=== PATIENT | female | born 1975 | race Caucasian/White ===

== ENCOUNTER → 2019-05-07 11:00 | Outpatient (BNVA) | payer SELFPAY | PROVIDERS: PCP Registered Nurse; Visit Provider Registered Nurse | DX: E11.9 Type 2 diabetes mellitus without complications (principal) | CPT/HCPCS: 83036; 84146 ==

== ENCOUNTER → 2019-06-09 15:15 | Outpatient (BNVA) | payer BC, SELFPAY | PROVIDERS: PCP Registered Nurse; Visit Provider Nurse Practitioner Family | DX: R05 Cough (principal); J06.9 Acute upper respiratory infection, unspecified | CPT/HCPCS: 87804 ==

== ENCOUNTER → 2019-09-02 13:31 | Outpatient (BNVA) | payer BC, SELFPAY | PROVIDERS: PCP Registered Nurse; Visit Provider Registered Nurse | DX: E10.65 Type 1 diabetes mellitus with hyperglycemia (principal); Z12.31 Encounter for screening mammogram for malignant neoplasm of breast; F41.9 Anxiety disorder, unspecified; E22.1 Hyperprolactinemia; F33.0 Major depressive disorder, recurrent, mild | CPT/HCPCS: 80053; 83036; 84146; 85025 ==

== ENCOUNTER → 2019-12-07 10:16 | Outpatient (BNVA) | payer BC, SELFPAY | PROVIDERS: PCP Registered Nurse; Visit Provider Nurse Practitioner Family | DX: E10.65 Type 1 diabetes mellitus with hyperglycemia (principal); E22.1 Hyperprolactinemia; Z79.899 Other long term (current) drug therapy | CPT/HCPCS: 80053; 82043; 83036; 84146 ==

== ENCOUNTER → 2020-03-01 10:58 | Outpatient (BNVA) | payer BC, SELFPAY | PROVIDERS: PCP Registered Nurse; Visit Provider Registered Nurse | DX: E10.65 Type 1 diabetes mellitus with hyperglycemia (principal); F41.9 Anxiety disorder, unspecified | CPT/HCPCS: 83036 ==

== ENCOUNTER → 2020-06-14 08:38 | Outpatient (BNVA) | payer OTHER, SELFPAY | PROVIDERS: PCP Registered Nurse; Visit Provider Registered Nurse | DX: E10.65 Type 1 diabetes mellitus with hyperglycemia (principal); I10 Essential (primary) hypertension; F33.0 Major depressive disorder, recurrent, mild | CPT/HCPCS: 80053; 83036; 85025 ==

== ENCOUNTER → 2020-07-01 09:22 | Outpatient (BNVA) | payer OTHER, SELFPAY | PROVIDERS: PCP Registered Nurse; Referring Provider Registered Nurse; Visit Provider Internal Medicine | DX: D35.2 Benign neoplasm of pituitary gland (principal); E10.65 Type 1 diabetes mellitus with hyperglycemia; E16.0 Drug-induced hypoglycemia without coma; T38.3X5A Adverse effect of insulin and oral hypoglycemic [antidiabetic] drugs, initial encounter; E22.1 Hyperprolactinemia | CPT/HCPCS: 99204 ==

== ENCOUNTER → 2020-07-13 09:04 | Outpatient (BNVA) | payer OTHER, SELFPAY | PROVIDERS: PCP Registered Nurse; Visit Provider Internal Medicine | DX: D35.2 Benign neoplasm of pituitary gland (principal); E10.65 Type 1 diabetes mellitus with hyperglycemia | CPT/HCPCS: 84146 ==

== ENCOUNTER → 2020-07-15 10:54 | Outpatient (BNVA) | payer OTHER, SELFPAY | PROVIDERS: PCP Registered Nurse; Visit Provider Internal Medicine | DX: E10.65 Type 1 diabetes mellitus with hyperglycemia (principal); E16.0 Drug-induced hypoglycemia without coma; T38.3X5A Adverse effect of insulin and oral hypoglycemic [antidiabetic] drugs, initial encounter; E22.1 Hyperprolactinemia | CPT/HCPCS: 99214 ==

== ENCOUNTER 2020-07-31 22:18 | Emergency (ER) | payer OTHER, SELFPAY ==
[2020-07-31 22:42] VITALS: BP 145/93; PULSE 97; RESP 15; TEMP 36.6; O2SAT 98; BMI 27.4
--- NOTE | 2020-08-01 00:21 | CTR_ITS ---
PROCEDURE INFORMATION: Exam: CT Head Without Contrast Exam date and time: 08/01/2020 12:23 AM Age: 45 years old Clinical indication: Patient HX: C/O severe dizziness; Additional info: Dizzy TECHNIQUE: Imaging protocol: Computed tomography of the head without contrast. Radiation optimization: All CT scans at this facility use at least one of these dose optimization techniques: automated exposure control; mA and/or kV adjustment per patient size (includes targeted exams where dose is matched to clinical indication); or iterative reconstruction. ADDITIONAL STUDY INFORMATION: Total DLP (mGy-cm): 810.24 COMPARISON: No relevant prior studies available. FINDINGS: Small calcified extra-axial lesion projecting over upper-posterior aspect left frontal lobe is likely meningioma. Evaluation of the brain demonstrates no other areas of abnormal density. Size of ventricular system appears within normal limits for the patient's stated age. No depressed calvarial fracture is demonstrated. Visualized paranasal sinuses and mastoid air cells demonstrate no significant opacification. CT/CT head wo con* [id number] IMPRESSION: No acute intracranial process is demonstrated. Small calcified extra-axial lesion projecting over upper-posterior aspect left frontal lobe is likely meningioma. Continued follow-up imaging as clinically warranted. Radiation Dose CTDIVOL = (mGy): DLP = 810.24 (mGy-cm)
[2020-08-01] MEDS: sodium chloride 0.9% 1,000 ML 999 ML IV (00:50)
[2020-08-01] MEDS: LORazepam 2 mg/mL INJ 1 mL 1.5 MG IVP (00:54)
[2020-08-01] MEDS: ondansetron 2 mg/ML SDV 2 mL 4 MG IVP (00:54)
[2020-08-01 01:04] LABS: Basophils # 0.1 10^3/uL (0.0-0.1); Basophils % 1.5 %; Eosinophils # 0.5 10^3/uL (0.0-0.8); Eosinophils % 5.7 %; Hematocrit 43.6 % (37.0-47.0); Hemoglobin 14.4 g/dL (11.5-15.3); Lymphocytes # 3.4 10^3/uL (0.8-4.8); Lymphocytes % 39.7 %; Mean Corpuscular Hemoglobin 27.3 pg (28.0-34.0); Mean Corpuscular Volume 82.7 fL (81-99); Mean Platelet Volume 10.7 fL (7.4-10.4); Monocytes # 0.4 10^3/uL (0.2-0.9); Monocytes % 4.4 %; Neutrophils # 4.15 10^3/uL (1.8-7.7); Neutrophils % 48.4 %; Nucleated Red Blood Cells % 0 %; Platelet Count 366 10^3/cmm (130-400); Red Blood Count 5.27 10^6/uL (4.1-5.3); Red Cell Distribution Width 13.8 % (12.1-15.1); White Blood Count 8.6 10^3/uL (4.0-10.0)
--- NOTE | 2020-08-01 01:23 | W.ED.DIZZY ---
HPI - Dizziness General: Chief Complaint: Dizziness Stated Complaint: dizzy Time Seen by Provider: 08/01/20 00:09 History of Present Illness: HPI Narrative: 45-year-old female with a history of vertigo due to inner ear infections . She presents with dizziness. She woke up this morning dizzy, and has been dizzy throughout the day. She notes that her left arm feels a bit weird as well, and has most of the day. She is not weak. No language problems, no facial droop, no other symptoms. She explains a vertiginous type of dizziness. MD elicited complaint: dizziness and vertigo Pertinent past history: inner ear problems Onset (ago): hour(s) Timing: awoke with symptoms Severity: moderate Description: sense of movement and room spinning Context: change in body position History of similar symptoms: Yes Exacerbating factors: movement/ambulation Relieving factors: nothing Associated symptoms: Reports nausea; Denies chest pain, fevers/chills, headache(s), rash, tinnitus or vomiting Review of Systems ENMT: Denies: tinnitus Card: Denies: chest pain Resp: Denies: dyspnea or productive cough GI: Reports: nausea; Denies: vomiting Neuro: Denies: headache(s) PFSH ED PFSH: Medical History Depression Hyperprolactinemia Hypoglycemia due to insulin Uncontrolled type 1 diabetes mellitus with hyperglycemia Surgical History History of section Hx of tubal ligation Family History Father Cancer Mother Cancer Social History Smoking and tobacco status: current every day smoker Second hand smoke exposure: Yes Smoking risk assessment/counseling performed?: No Alcohol intake: never Desire information about alcohol rehabilitation?: No Counseling given: No Desire information about substance/drug rehabilitation?: No Counseling given: No Adopted: No Caregiver/support person: No Lives independently: Yes Household members: spouse Current gender identity: Female Female Reproductive History: Date of last menstrual period: 11/09/19 Para: 2 Spontaneous abortions: No Physical Exam Const: COMMON NORMALS: patient oriented x3 GENERAL APPEARANCE: well developed ORIENTATION/CONSCIOUSNESS: Yes oriented to person, Yes oriented to place and Yes oriented to time HENMT: COMMON NORMALS: normocephalic, external ears normal and Normal external nose present HEAD & SCALP: normocephalic FACE & SINUS: normal facial exam NOSE: Normal external nose present and No nasal discharge present EXTERNAL EAR: Yes external ears normal Eye: COMMON NORMALS: Equal, round and reactive pupils present, EOMs intact bilaterally and conjunctivae normal EYELID: eyelids normal CONJUNCTIVA: Yes conjunctivae normal PUPIL: Yes Equal, round and reactive pupils present Neck/C-Spine: GENERAL: No tracheal deviation Chest: COMMONS NORMALS: normal inspection of the chest CHEST: No tenderness Resp: COMMON NORMALS: clear to auscultation bilaterally EFFORT & INSPECTION: No tachypneic, No respiratory distress, No retractions, No uses accessory muscles and No tracheal deviation AUSCULTATION: clear to auscultation bilaterally, no rhonchi, no wheezes and lung sounds not diminished Cardio: COMMON NORMALS: regular rate and regular rhythm RATE: regular rate RHYTHM: regular rhythm HEART SOUNDS: no murmurs PERIPHERAL PULSES: radial pulses present GI: INSPECTION: No abdominal distension AUSCULTATION: No Hyperactive bowel sounds present and No Hypoactive bowel sounds present PALPATION: No Guarding due to palpation present (GI) and No Rigid due to palpation PERCUSSION: no dullness to percussion and no tympanic to percussion Neuro: COMMON NORMALS: patient oriented x3, CN's II-XII intact bilaterally, moves all extremities and no focal motor deficits SENSORIUM/ORIENTATION: Yes oriented to person, Yes oriented to place and Yes oriented to time COORDINATION/BALANCE: [id number] test normal and [id number]-[id number] test normal SPEECH: speech normal SENSORY EXAM: Yes extremities (sensation intact) MOTOR EXAM: Pronator motor function not present COORDINATION: [id number]-[id number] test normal and yvnm-py-hplc test normal Psych: COMMON NORMALS: mental status grossly normal Skin: COMMON NORMALS: no rashes or lesions noted GENERAL SKIN EXAM: no rashes or lesions noted Course Vital Signs: Vital signs: Vital Signs Temperature 97.9 F 07/31/20 22:42 Pulse Rate 81 08/01/20 02:16 Respiratory Rate 18 08/01/20 02:16 Blood Pressure 124/78 08/01/20 02:16 Pulse Oximetry 97 08/01/20 02:16 MDM - Dizziness MDM Narrative: Medical decision making narrative: CT is negative. Labs are benign. It appears patient has history of benign paroxysmal vertigo, and likely has had a exacerbation. She will be treated with benzodiazepines and meclizine. Close outpatient follow-up. Lab Data: Labs: Lab Results 08/01/20 08/01/20 Range/Units 00:50 00:50 WBC 8.6 (4.0-10.0) 10^3/ uL RBC 5.27 (4.1-5.3) 10^6/u L Hgb 14.4 (11.5-15.3) g/dL Hct 43.6 (37.0-47.0) % MCV 82.7 (81-99) fL MCH 27.3 L (28.0-34.0) pg MCHC 33.0 (30.0-36.0) g/dL RDW 13.8 (12.1-15.1) % Plt Count 366 (130-400) 10^3/c mm MPV 10.7 H (7.4-10.4) fL Neut % (Auto) 48.4 % Lymph % (Auto) 39.7 % Cannon % (Auto) 4.4 % Eos % (Auto) 5.7 % Baso % (Auto) 1.5 % Neut # (Auto) 4.15 (1.8-7.7) 10^3/u L Lymph # (Auto) 3.4 (0.8-4.8) 10^3/u L Cannon # (Auto) 0.4 (0.2-0.9) 10^3/u L Eos # (Auto) 0.5 (0.0-0.8) 10^3/u L Baso # (Auto) 0.1 (0.0-0.1) 10^3/u L Nucleated RBC % (a uto) 0 % Nucleated RBCs # 0.0 /100WBC Sodium 134 L (136-145) mmol/L Potassium 4.2 (3.5-5.1) mmol/L Chloride 98 (98-107) mmol/L Carbon Dioxide 26 (22-29) mmol/L Anion Gap 14.2 (5-19) BUN 9 (6-20) mg/dL Creatinine 0.5 (0.5-0.9) mg/dL GFR Calculation 134.7 H (90-130) mL/min Glucose 309 H (65-115) mg/dL Calculated Osmolal ity 288 (285-295) mOsm/k g Calcium 8.6 (8.5-10.5) mg/dL Magnesium 1.9 (1.7-2.3) mg/dL Total Bilirubin 0.2 (0.15-1.2) mg/dL AST 11 (0-32) U/L ALT 11 (0-33) U/L Alkaline Phosphata se 87 (35-105) IU/L Total Protein 6.7 (6.6-8.7) g/dL Albumin 4.1 (3.5-5.2) g/dL Globulin 2.6 (1.3-4.6) g/dL Discharge Plan Discharge Patient Disposition: Home Clinical Impression: Benign paroxysmal positional vertigo Qualifiers: Laterality: right Qualified Code(s): H81.11 - Benign paroxysmal vertigo, right ear Condition: Stable Prescriptions: New meclizine 25 mg tablet 25 mg PO TID PRN (Reason: dizziness) Qty: 30 RF: 0 lorazepam 1 mg tablet 1 mg PO TID PRN (Reason: dizziness or vertigo) Qty: 7 RF: 0 No Action venlafaxine 75 mg capsule,extended release 24hr See Rx Instructions .ROUTE .COMPLEX Qty: 90 RF: 1 Apidra SoloStar U-100 Insulin 100 unit/mL insulin pen See Rx Instructions .ROUTE .COMPLEX Qty: 27 RF: 2 Lantus Solostar U-100 Insulin 100 unit/mL (3 mL) insulin pen See Rx Instructions .ROUTE .COMPLEX Qty: 15 RF: 2 cabergoline 0.5 mg tablet 0.25 mg PO .COMPLEX RF: 0 valacyclovir [Valtrex] 1 gram tablet 1,000 mg PO BID 7 Days Qty: 14 RF: 0 alprazolam 0.5 mg tablet 0.5 mg PO QDAY PRN (Reason: anxiety) Qty: 30 RF: 3 Discharge Orders: Discharge ED (Routine); Ordered 08/01/20 Ordered By: Zeus Estrada Referrals: Lorrie Ramirez, EXPLOSIVE [employer]DNANCE DISPOSAL SPECIALIST [Primary Care Provider] - 4-7 days Patient Instructions: Benign Paroxysmal Positional Vertigo (ED) Activity Restrictions/Additional Instructions: Return for mental status changes, episodes of syncope or passing out, worsening dizziness despite treatment, trouble with language, weakness, other concerning symptoms. Coding Level of Care Code ED Farm[employer] for Alessandra Fwd Exam Comprehensive
[2020-08-01 01:24] LABS: Alanine Aminotransferase 11 U/L (0-33); Albumin Level 4.1 g/dL (3.5-5.2); Alkaline Phosphatase 87 IU/L (35-105); Anion Gap 14.2 (5-19); Aspartate Amino Transferase 11 U/L (0-32); Blood Urea Nitrogen 9 mg/dL (6-20); Calcium 8.6 mg/dL (8.5-10.5); Carbon Dioxide 26 mmol/L (22-29); Chloride 98 mmol/L (98-107); Globulin 2.6 g/dL (1.3-4.6); Glomerular Filtration Rate 134.7 mL/min (90-130); Glucose 309 mg/dL (65-115); Magnesium 1.9 mg/dL (1.7-2.3); Osmolality Calculated 288 mOsm/kg (285-295); Potassium 4.2 mmol/L (3.5-5.1); Sodium 134 mmol/L (136-145); Total Bilirubin 0.2 mg/dL (0.15-1.2); Total Protein 6.7 g/dL (6.6-8.7)
[2020-08-01 02:16] VITALS: BP 124/78; PULSE 81; RESP 18; O2SAT 97
== END 2020-08-01 02:15 | disposition home or self-care (01) ==
PROVIDERS: Emergency Provider Emergency Medicine; PCP Registered Nurse
DX: H81.11 Benign paroxysmal vertigo, right ear (principal); Z79.4 Long term (current) use of insulin; E10.9 Type 1 diabetes mellitus without complications; F17.210 Nicotine dependence, cigarettes, uncomplicated
CPT/HCPCS: 70450; 80053; 83735; 85025; 96361; 96374; 96375; 99283; J2060; J2405; J7030

== ENCOUNTER 2020-10-09 12:00 | Emergency (ER) | payer OTHER, SELFPAY ==
[2020-10-09 12:14] VITALS: BP 125/84; PULSE 80; RESP 18; TEMP 36.7; O2SAT 97; BMI 24.0
--- NOTE | 2020-10-09 12:22 | W.ED.MEDCLER ---
HPI - Medical Clearance General Chief complaint: Medical Clearance Stated complaint: Needs insulin refilled Time Seen by Provider: 10/09/20 12:21 History of Present Illness HPI Narrative: Patient is a 45-year-old female comes to the ED wanting to get insulin med refilled. Patient has no other complaints or symptoms. Related Information Home Medications Medication Instructions Recorded Confirmed cabergoline 0.5 mg tablet 0.25 mg PO .COMPLEX tab 07/01/20 08/16/20 aspirin 81 mg tablet,delayed 81 mg PO DAILY 08/11/20 08/16/20 release atorvastatin 40 mg tablet 40 mg PO DAILY 08/11/20 08/16/20 Previous Rx's Medication Instructions Recorded valacyclovir 1 gram tablet 1,000 mg PO BID 7 Days #14 tab 09/10/19 insulin glulisine U-100 100 See Rx Instructions .ROUTE 06/14/20 unit/mL subcutaneous pen .COMPLEX #27 ml venlafaxine 75 mg capsule,extended See Rx Instructions .ROUTE 06/14/20 release 24 hr .COMPLEX #90 capsule meclizine 25 mg PO TID PRN #30 tab 08/01/20 clonazepam 0.5 mg disintegrating 0.25 - 0.5 mg PO BID PRN #30 tab 08/26/20 tablet insulin glargine 100 unit/mL (3 See Rx Instructions .ROUTE 08/26/20 mL) subcutaneous pen .COMPLEX #15 ml insulin glulisine U-100 [Apidra 10 unit SUBCUT TID #3 ml 10/09/20 SoloStar U-100 Insulin] Allergies Allergy/AdvReac Type Severity Reaction Status Date / Time latex Allergy Unknown Verified 10/09/20 12:14 moxifloxacin [From Avelox] Allergy Unknown Verified 10/09/20 12:14 Penicillins Allergy Unknown Verified 10/09/20 12:14 Course Vital Signs Temperature 98.0 F 10/09/20 12:27 Pulse Rate 80 10/09/20 12:27 Respiratory Rate 18 10/09/20 12:27 Blood Pressure 125/84 10/09/20 12:27 Pulse Oximetry 97 10/09/20 12:27 MDM - Medical Clearance MDM Narrative Medical decision making narrative: Patient is a 45-year-old female comes to the ED to get medication refilled. Patient says she ran out of her insulin and needs to get that med refilled. Patient was out of her Apidra SoloStar insulin. Patient was in no acute distress or pain and had no other complaints. Patient was discharged home with a new prescription for her Apidra SoloStar insulin. Follow-up with PCP in 7 to 10 days reevaluation. Return ED precautions given. Patient understood agree with plan. Discharge Plan Discharge Patient Disposition: Home Clinical Impression: Encounter for medication refill Condition: Stable Prescriptions: New Apidra SoloStar U-100 Insulin 100 unit/mL insulin pen 10 unit SUBCUT TID Qty: 3 RF: 0 No Action venlafaxine 75 mg capsule,extended release 24hr See Rx Instructions .ROUTE .COMPLEX Qty: 90 RF: 1 Apidra SoloStar U-100 Insulin 100 unit/mL insulin pen See Rx Instructions .ROUTE .COMPLEX Qty: 27 RF: 2 cabergoline 0.5 mg tablet 0.25 mg PO .COMPLEX RF: 0 aspirin [Adult Low Dose Aspirin] 81 mg tablet,delayed release (DR/EC) 81 mg PO DAILY RF: 0 atorvastatin 40 mg tablet 40 mg PO DAILY RF: 0 valacyclovir [Valtrex] 1 gram tablet 1,000 mg PO BID 7 Days Qty: 14 RF: 0 Lantus Solostar U-100 Insulin 100 unit/mL (3 mL) insulin pen See Rx Instructions .ROUTE .COMPLEX Qty: 15 RF: 2 clonazepam 0.5 mg tablet,disintegrating 0.25 - 0.5 mg PO BID PRN (Reason: anxiety) Qty: 30 RF: 1 meclizine 25 mg tablet 25 mg PO TID PRN (Reason: dizziness) Qty: 30 RF: 0 Discharge Orders: Discharge ED (Routine); Ordered 10/09/20 Ordered By: Alvaro Cameron Referrals: Lorrie Ramirez FNP [Primary Care Provider] - Discharge Diet: Regular Discharge Activity: Resume usual activity Patient Instructions: Diabetes and Diet, Diabetes Mellitus Type 1 in Adults (ED) Activity Restrictions/Additional Instructions: Follow-up with medical provider as directed and 7 to 10 days for reevaluation. Take medications as prescribed. Return to the ER or your medical provider if condition worsens. Please read and understand discharge instructions. Thank you for choosing [facility] for your healthcare needs today. Please realize this is an emergency room and that we are providing you with a medical screening exam and this may not be complete and all inclusive of all the testing and or work up that you may need to determine your ailment or severity of your illness. It is very important that you follow up as instructed or that you return to the Emergency Department should you have concerns or if your condition changes or worsens in any way.
[2020-10-09 12:27] VITALS: BP 125/84; PULSE 80; RESP 18; TEMP 36.7; O2SAT 97
== END 2020-10-09 12:44 | disposition home or self-care (01) ==
PROVIDERS: Emergency Provider Physician Assistant; PCP Registered Nurse
DX: Z76.0 Encounter for issue of repeat prescription (principal); Z79.82 Long term (current) use of aspirin; Z79.4 Long term (current) use of insulin
CPT/HCPCS: 99281

== ENCOUNTER 2020-10-16 12:07 | Emergency (ER) | payer OTHER, SELFPAY ==
[2020-10-16 12:30] VITALS: BP 131/82; PULSE 79; RESP 18; TEMP 36.6; O2SAT 96; BMI 27.4
--- NOTE | 2020-10-16 15:35 | PC.NURSE ---
Visual eye acuity test of 20/70 in each eye.
[2020-10-16] MEDS: eye irrigation 30 mL Btl EYE-LEFT (15:49)
[2020-10-16] MEDS: tetracaine 0.5% Op Soln 4 mL Btl 1 DROP EYE-LEFT (15:49)
[2020-10-16] MEDS: fluorescein 1 mg Strip EYE-LEFT (15:50)
--- NOTE | 2020-10-16 16:52 | ED_ITS ---
HPI - Eye Problem General: Chief complaint: Eye Problems Stated complaint: L EYE INJURY Time Seen by Provider: 10/16/20 13:45 Source: patient Mode of arrival: ambulatory Limitations: no limitations History of Present Illness: HPI Narrative: 45-year-old female patient presents to the emergency department complaining of left eye pain. Patient states she was gardening in public she got something in her eye. Patient states she started rubbing her eye and ever since then has had eye pain. Patient states she has visual disturbances in that eye which is normal for her due to an old stroke. Associated symptoms: Denies fever(s), headache(s), nausea, neck pain or vomiting Review of Systems Const: Denies: fever(s), chills, body aches, change in appetite, change in weight, fatigue, malaise or diaphoresis Eyes: Reports: change in vision (This is not new as patient has old stroke with deficits) and eye discomfort; Denies: blurry vision, blind spots, photophobia, eye discharge, eye redness, floaters or seeing flashes ENMT: Denies: throat pain, uvular edema, enlarged tonsils, odynophagia, hoarseness, mouth pain, swelling of lips/tongue, oral sores, bleeding gums, dental pain, dry mouth, ear or mastoid pain, ear discharge, change in hearing, tinnitus, disequilibrium, nasal discharge, nasal congestion, post nasal drip or sinus pain Card: Denies: chest pain, palpitations, irregular heart rhythm, edema, swelling of feet/ankles, lightheadedness, syncope, pre-syncope, dyspnea on exertion, orthopnea, leg pain with exertion or acrocyanosis Resp: Denies: dyspnea, productive cough, non-productive cough, wheezing, stridor, pain on inspiration, change in phlegm color, hemoptysis or chest congestion GI: Denies: abdominal pain, nausea, vomiting, hematemesis, dysphagia, diarrhea, constipation, GI cramping, change in bowel habits or rectal pain : Denies: flank pain, difficulty voiding, dysuria, urinary frequency, urinary urgency, urinary hesitancy or hematuria Musc: Denies: neck pain, back pain, extremity pain, extremity swelling, joint pain, joint swelling, joint redness, joint warmth or deformity Skin/Breast: Denies: rash, pruritus, erythema, sores, new lesions, changes in skin color or dry skin Neuro: Denies: headache(s), numbness in extremities, weakness in extremities, sensory changes, lack of coordination, difficulty walking, frequent falls, dizziness, vertigo, confusion, behavioral changes, Slurred speech present, difficulty communicating thoughts or seizure-like activity Psych: Denies: anxiety, depression, suicidal ideation or homicidal ideation Endo: Denies: polyuria, polydipsia, tired all the time, cold intolerance, excessive sweating, flushing, hot flashes or heat intolerance Kennedy/Lymph: Denies: easy bruising, easy bleeding, petechiae, purpura, enlarged lymph nodes or tender lymph nodes All/Imm: Denies: urticaria, throat swelling, tongue swelling, facial swelling, acute wheezing or itchy eyes PFSH ED PFSH: Medical History Depression Hyperprolactinemia Hypoglycemia due to insulin Ischemic stroke without residual deficits Dx 08/05/2020 @ [facility] Uncontrolled type 1 diabetes mellitus with hyperglycemia Surgical History History of section Hx of tubal ligation Family History Father Cancer Mother Cancer, Onset Age: 65 brain cancer at age 65 Social History Smoking and tobacco status: current every day smoker Second hand smoke exposure: Yes Smoking risk assessment/counseling performed?: No Alcohol intake: never Desire information about alcohol rehabilitation?: No Counseling given: No Desire information about substance/drug rehabilitation?: No Counseling given: No Adopted: No Caregiver/support person: No Lives independently: Yes Household members: spouse Current gender identity: Female Female Reproductive History: Date of last menstrual period: 11/09/19 Para: 2 Spontaneous abortions: No Physical Exam Const: COMMON NORMALS: no acute distress, average body habitus, patient oriented x3, no limitations, healthy appearing, alert and well nourished HENMT: COMMON NORMALS: normocephalic, atraumatic, hearing grossly normal bilaterally, external ears normal, EAC's normal, TM's normal bilaterally, Normal external nose present, Normal nasal mucous membranes and turbinates present, moist oral mucous membranes, oropharynx normal, dentition normal and gingiva normal HEAD & SCALP: normocephalic and atraumatic NOSE: Normal external nose present and Normal nasal mucous membranes and turbinates present EXTERNAL EAR: Yes external ears normal EXTERNAL AUDITORY CANAL: EAC's normal TYMPANIC MEMBRANE: TM's normal bilaterally THROAT: no uvular edema Eye: COMMON NORMALS: Equal, round and reactive pupils present, EOMs intact bilaterally, conjunctivae normal, no scleral icterus, no papilledema, normal visual hopkins by confrontation and fundi normal bilaterally GENERAL EYE: appearance normal, both eyes and all related structures and normal light reflex VISUAL ACUITY: Yes visual acuity left eye (This is a normal finding for patient secondary to remote stroke) ALIGNMENT: Yes alignment normal EYELID: eyelids normal CONJUNCTIVA: Yes conjunctivae normal SCLERA: sclerae normal CORNEA: Yes fluorescein used (Patient has corneal abrasion at 6:00) PUPIL: Yes Equal, round and reactive pupils present DIRECT OPHTHALMOSCOPY: Yes normal light reflex, Yes no papilledema and Yes fundi normal bilaterally Neuro: COMMON NORMALS: patient oriented x3 SENSORIUM/ORIENTATION: Yes alert Course Vital Signs: Vital signs: Vital Signs Temperature 97.9 F 10/16/20 12:30 Pulse Rate 79 10/16/20 12:30 Respiratory Rate 18 10/16/20 12:30 Blood Pressure 131/82 10/16/20 12:30 Pulse Oximetry 96 10/16/20 12:30 MDM - Eye Problem MDM Narrative: Medical decision making narrative: Patient is well-appearing nontoxic and in no acute distress. 45-year-old female patient presents to the emergency department complaining of left eye pain. Patient states she was gardening in public she got something in her eye. Patient states she started rubbing her eye and ever since then has had eye pain. Patient states she has visual disturbances in that eye which is normal for her due to an old stroke. I did examine patient's eye after applying tetracaine and fluorescein under a Carter lamp patient does have a corneal abrasion noted at 6:00. I will send patient home with erythromycin eye ointment and have her follow-up with Dr. Wright ophthalmology Saturday a.m. Discharge Plan Discharge Patient Disposition: Home Clinical Impression: Abrasion, corneal Qualifiers: Encounter type: initial encounter Laterality: left Qualified Code(s): S05.02XA - Injury of conjunctiva and corneal abrasion without foreign body, left eye, initial encounter Condition: Stable Prescriptions: New erythromycin 5 mg/gram (0.5 %) ointment 1 applic ophthalmic (eye) Q8H 7 Days Qty: 1 RF: 0 No Action venlafaxine 75 mg capsule,extended release 24hr See Rx Instructions .ROUTE .COMPLEX Qty: 90 RF: 1 Apidra SoloStar U-100 Insulin 100 unit/mL insulin pen See Rx Instructions .ROUTE .COMPLEX Qty: 27 RF: 2 cabergoline 0.5 mg tablet 0.25 mg PO .COMPLEX RF: 0 aspirin [Adult Low Dose Aspirin] 81 mg tablet,delayed release (DR/EC) 81 mg PO DAILY RF: 0 atorvastatin 40 mg tablet 40 mg PO DAILY RF: 0 valacyclovir [Valtrex] 1 gram tablet 1,000 mg PO BID 7 Days Qty: 14 RF: 0 Lantus Solostar U-100 Insulin 100 unit/mL (3 mL) insulin pen See Rx Instructions .ROUTE .COMPLEX Qty: 15 RF: 2 clonazepam 0.5 mg tablet,disintegrating 0.25 - 0.5 mg PO BID PRN (Reason: anxiety) Qty: 30 RF: 1 Apidra SoloStar U-100 Insulin 100 unit/mL insulin pen 10 unit SUBCUT TID Qty: 3 RF: 0 meclizine 25 mg tablet 25 mg PO TID PRN (Reason: dizziness) Qty: 30 RF: 0 Discharge Orders: Discharge ED (Routine); Ordered 10/16/20 Ordered By: Suzie Crouch Referrals: Dontrell Wright MD [Physician] - (Please see Dr. Wright tomorrow for recheck) Lorrie Ramirez FNP [Primary Care Provider] - Discharge Diet: Advance as tolerated Discharge Activity: Increase activity as tolerated Patient Instructions: Corneal Abrasion (ED), Opioid Safety Activity Restrictions/Additional Instructions: Please use medication as directed Please return to ER if Your eye pain or vision gets worse. You have yellow or green drainage from your eye. You have questions about your condition or care Coding Level of Care Code ED Aging Room Hand for Alessandra Luque
== END 2020-10-16 15:51 | disposition home or self-care (01) ==
PROVIDERS: Emergency Provider Registered Nurse; PCP Registered Nurse
DX: S05.02XA Injury of conjunctiva and corneal abrasion without foreign body, left eye, initial encounter (principal); Z79.82 Long term (current) use of aspirin; Z79.4 Long term (current) use of insulin; E10.9 Type 1 diabetes mellitus without complications; Z86.73 Personal history of transient ischemic attack (TIA), and cerebral infarction without residual deficits; F17.210 Nicotine dependence, cigarettes, uncomplicated; X58.XXXA Exposure to other specified factors, initial encounter
CPT/HCPCS: 99283

== ENCOUNTER → 2020-11-24 09:40 | Outpatient (BNVA) | payer OTHER, SELFPAY | PROVIDERS: PCP Registered Nurse; Visit Provider Internal Medicine | DX: E22.1 Hyperprolactinemia (principal); E16.0 Drug-induced hypoglycemia without coma; T38.3X5A Adverse effect of insulin and oral hypoglycemic [antidiabetic] drugs, initial encounter; E10.65 Type 1 diabetes mellitus with hyperglycemia | CPT/HCPCS: 84146 ==

== ENCOUNTER → 2020-11-29 14:55 | Outpatient (BNVA) | payer OTHER, SELFPAY | PROVIDERS: PCP Registered Nurse; Visit Provider Nurse Practitioner Family | DX: Z20.822 Contact with and (suspected) exposure to COVID-19 (principal); R05 Cough | CPT/HCPCS: 87635 ==

== ENCOUNTER 2020-12-16 09:31 | Observation (INO) | payer OTHER, SELFPAY ==
[2020-12-16 09:48] VITALS: BP 118/79; PULSE 84; RESP 15; TEMP 36.7; O2SAT 96; BMI 25.7
--- NOTE | 2020-12-16 12:51 | ECG_ITS ---
[facility] Test Date: 2020-12-16 Pat Name: Nava Carlson Department: Room: [facility] Gender: Female Rig Manager: : 1975 Requested By: Lakhsmi Almaraz Order Number: [id number] Cheikh MD: Kun Knight M.D. Measurements Intervals [place] Rate: 70 P: 50 VT: 166 QRS: 82 QRSD: 90 T: 68 QT: 406 QTc: 439 Interpretive Statements SINUS RHYTHM No previous ECG available for comparison Electronically Signed On 12-16-2020 20:33:07 CDT by Kun Knight M.D. [id number]
--- NOTE | 2020-12-16 12:51 | CT_ITS ---
WS: [id number] CT HEAD TECHNIQUE: Noncontrast CT of the head obtained from the skullbase to the vertex. CLINICAL INFORMATION: TIA? COMPARISON: August 01, 2020 DLP: 774.[address] scans at [facility] use at least one of these dose optimization techniques: automated e xposure control; mA and/or kV adjustment per patient size (includes targeted exams where dose is matc hed to clinical indication); or iterative reconstruction. FINDINGS: No evidence of intracranial hemorrhage or mass effect. Ventricular system and basal cisterns are avitia nt. No extra-axial fluid collections. No evidence of mass or mass effect. Normal goode-white different iation. Small calcified left frontal parietal meningioma unchanged measuring 7 mm. Paranasal sinuses and mastoid air cells are well aerated. .Normal visualized soft tissues. CT/CT head wo con* [id number] IMPRESSION: 1. No evidence of intracranial hemorrhage or mass effect. 2. Normal goode-white differentiation. 3. Small calcified left frontal parietal meningioma unchanged measuring 7 mm. 4. No acute intracranial findings.
--- NOTE | 2020-12-16 13:00 | ED_ITS ---
HPI - General Adult General: Chief complaint: ER Hold Stated complaint: NUMBNESS IN LEFT HAND Time Seen by Provider: 12/16/20 12:34 History of Present Illness: HPI narrative: CC: Transient L arm heaviness HPI: [45]yo patient w/ hx of prior CVA in 07/2020, HTN, DM, structural cardiac abnoramltiy BIBA for sudden 3 hrs of L arm paralysis and heaviness which started yesterday at 8pm and improved after a few hours. Patient denies any paralysis or sensory changes. Denies any chest pain, SOB, palpitations, /GI complaints. Patient is not on any anticoagulation. Onset: 1 day ago Duration: last 3 hrs Location: home Severity: moderate/severe Review of Systems Narrative: Constitutional: No fever, no chills. HEENT: No vision changes CV: No chest pain, no palpitations PULM: No cough, no dyspnea. GI: No abdominal pain, no N/V/D. : No dysuria MSKEL: No edema SKIN: No new rashes, no lesions. NEURO: +Transient L arm weakness HEME: No visible bruises PSYCH: Normal mood PFSH ED PFSH: Medical History (Updated 12/18/20 @ 00:01 by ) Anxiety Anxiety Depression Hyperprolactinemia Hypoglycemia due to insulin Ischemic stroke without residual deficits Dx 08/05/2020 @ [facility] Meningioma PFO with atrial septal aneurysm Prolactinoma Quit smoking quit 08/2020 Uncontrolled type 1 diabetes mellitus with hyperglycemia Surgical History History of section Hx of tubal ligation Family History Father Cancer Mother Cancer, Onset Age: 65 brain cancer at age 65 Social History Smoking and tobacco status: former smoker Second hand smoke exposure: Yes Smoking risk assessment/counseling performed?: No Alcohol intake: never Desire information about alcohol rehabilitation?: No Counseling given: No Desire information about substance/drug rehabilitation?: No Counseling given: No Adopted: No Caregiver/support person: No Lives independently: Yes Household members: spouse Current gender identity: Female Female Reproductive History: Date of last menstrual period: 11/09/19 Para: 2 Spontaneous abortions: No Physical Exam Narrative: EXAM NARRATIVE: Head: Atraumatic Eyes: PERRL, conjunctiva without injection ENT: Mucous membrane moist NECK: Supple without lymphadenopathy LUNGS: CTA CV: RRR ABDOMEN: Soft, nontender EXTREMITY: Normal ROM SKIN: No rash or erythema NEURO: NIHSS: 1. Level of Consciousness A) LOC Responsiveness 0 B) LOC Questions 0 C) LOC Commands 0 2. Horizontal Eye Movement 0 3. Visual field test 0 4. Facial Palsy 0 5. Motor Arm 0 6. Motor Leg 0 7. Limb Ataxia 0 9. Language 0 10. Speech 0 11. Extinction and Inattention 0 PSYCH: Normal mood and affect. Course Vital Signs: Vital signs: Vital Signs Temperature 98.3 F 12/17/20 13:19 Pulse Rate 126 H 12/17/20 13:19 Respiratory Rate 20 H 12/17/20 13:19 Blood Pressure 184/95 12/17/20 13:19 Pulse Oximetry 99 12/17/20 13:19 MDM - General Adult MDM Narrative: Medical decision making narrative: [45]yo patien BIBA for 3 hrs of transient L arm weakness, currently symptom free. Presentation concerning for possible TIA. Given History and Exam I have lower suspicion for infectious etiology, neurologic changes secondary to toxicologic ingestion, seizure, complex migraine. NIHSS score of 0. PMH risk factors: DM, HTN, CVA NIH Stroke Score:0 Case was discussed with Dr. Hale from [facility] with recommendaion for admission for TIA workup Patient will be admitted for a TIA workup. Disposition: Admission Lab Data: Labs: Lab Results 12/16/20 Range/Units 13:22 POC Glucose 299 H (70-110) mg/dL Imaging Data^: Other Imaging: Radiologist's impression: [address] [id number] Scan ReportSigned Patient: Maria Teresa Carlson #: [id number]: [id number]#:[id number]/Sex: 45 / FADM Date: 12/16/20Loc: ERRoom/Bed:Attending Dr: Ordering Provider/Ordering MD: Lakshmi Almaraz MD Date of Service: 12/16/20 Procedure(s): CT head wo con* [id number] Accession Number(s): [id number] Report Number: [id number] WS: [id number] CT HEAD TECHNIQUE: Noncontrast CT of the head obtained from the skullbase to the vertex. CLINICAL INFORMATION: TIA? COMPARISON: August 01, 2020 DLP: 774.[address] scans at [facility] use at least one of these dose optimization techniques: automated exposure control; mA and/or kV adjustment per patient size (includes targeted exams where dose is matched to clinical indication); or iterative reconstruction. FINDINGS: No evidence of intracranial hemorrhage or mass effect. Ventricular system and basal cisterns are patent. No extra-axial fluid collections. No evidence of mass or mass effect. Normal goode-white differentiation. Small calcified left frontal parietal meningioma unchanged measuring 7 mm. Paranasal sinuses and mastoid air cells are well aerated. .Normal visualized soft tissues. CT/CT head wo con* [id number] IMPRESSION: 1. No evidence of intracranial hemorrhage or mass effect. 2. Normal goode-white differentiation. 3. Small calcified left frontal parietal meningioma unchanged measuring 7 mm. 4. No acute intracranial findings. Dictated By:Gabo Wesley MDSigned By:Gabo Wesley MDSigned Date/Time:12/16/20 1334DD/ 1310 Discharge Plan Discharge Patient Disposition: Admitted As Inpatient Admit Provider: Bryant Killian Clinical Impression: Transient ischemic attack Condition: Stable Discharge Diet: Cardiac Discharge Activity: Resume usual activity Coding Level of Care Code ED Copier Repair Technician for Alessandra Luque
--- NOTE | 2020-12-16 13:25 | MR_ITS ---
WS: [id number] MRA HEAD TECHNIQUE: Axial 3-D TOF images obtained with axial images and axial, sagittal, and coronal 2-D refor matted images. CLINICAL INFORMATION: possible stroke COMPARISON: CT December 16, 2020 FINDINGS: Disorder vertebral arteries are patent. Basilar artery is patent. Patent right posterior communicatin g artery. Normal vascularity to the MERCHANDISE PLANNING MANAGER territories bilaterally. Both ICAs are patent at the skull base. Normal vascularity to the MADELINE and MCA territories bilaterally . Normal variant hypoplastic right A1 segment. No evidence of high-grade proximal stenosis or aneurys m. MR/MR angio head wo con [id number] IMPRESSION: Normal intracranial MRA. No evidence of flow-limiting stenosis.
--- NOTE | 2020-12-16 13:25 | MR_ITS ---
WS: [id number] MRI HEAD WITHOUT CONTRAST TECHNIQUE: Sagittal T1, T2 axial, T2 axial FLAIR, axial and coronal T1 images, axial susceptibility w eighted imaging, axial diffusion weighted images, and coronal T2 images were obtained. CLINICAL INFORMATION: evaluate for tia COMPARISON: None. FINDINGS: No evidence of restricted diffusion to suggest acute ischemia. Ventricular system and basal cisterns are patent. Calcified extra-axial lesion overlying the left parietal lobe compatible with small menin gioma also seen on the recent CT. This measures approximately 11 x 7 mm. No underlying parenchymal ed shaniqua or significant mass effect. Normal posterior fossa. Normal vascular flow voids at the skull base. No extra-axial fluid collection s. No evidence of mass or mass effect. Paranasal sinuses and mastoid air cells are well aerated. Rete ntion cyst right maxillary sinus. Normal optic chiasm and pituitary infundibulum. Temporal lobes and hippocampal formations are normal in appearance. Cavernous sinuses and Meckel's cave are normal in ap pearance. No hemosiderin on susceptibly weighted images. MR/MR head wo con* [id number] IMPRESSION: 1. No evidence of restricted diffusion to suggest acute ischemia. 2. Minimal small vessel changes. Mild parenchymal volume loss. 3. Calcified extra-axial lesion overlying the left parietal lobe consistent wi th small meningioma. No underlying edema or significant mass effect. 4. No hemosiderin on susceptibly weighted images.
--- NOTE | 2020-12-16 13:26 | PC.NURSE ---
pt accucheck done.
--- NOTE | 2020-12-16 13:49 | PC.PHAR ---
PT STATES SHE TAKES CARE OF HER OWN MEDICATIONS-PTS STATES SHE ONLY TAKES THE MEDICATIONS ENTERED
[2020-12-16 13:59] LABS: Basophils # 0.1 10^3/uL (0.0-0.1); Basophils % 1.4 %; Eosinophils # 0.3 10^3/uL (0.0-0.8); Eosinophils % 4.5 %; Hematocrit 38.6 % (37.0-47.0); Hemoglobin 12.1 g/dL (11.5-15.3); Lymphocytes # 2.4 10^3/uL (0.8-4.8); Lymphocytes % 35.8 %; Mean Corpuscular HGB Conc 31.3 g/dL (30.0-36.0); Mean Corpuscular Hemoglobin 26.8 pg (28.0-34.0); Mean Corpuscular Volume 85.4 fl (81-99); Mean Platelet Volume 10.7 fL (7.4-10.4); Monocytes # 0.3 10^3/uL (0.2-0.9); Monocytes % 3.9 %; Neutrophils # 3.59 10^3/uL (1.8-7.7); Neutrophils % 54.1 %; Nucleated Red Blood Cells % 0 %; Platelet Count 404 10^3/cmm (130-400); Red Blood Count 4.52 10^6/uL (4.1-5.3); Red Cell Distribution Width 13.2 % (12.1-15.1); White Blood Count 6.6 10^3/uL (4.0-10.0)
[2020-12-16 14:00] VITALS: BP 153/58; PULSE 78; RESP 19; O2SAT 98
[2020-12-16 14:10] LABS: Anion Gap 14.2 (5-19); Blood Urea Nitrogen 10 mg/dL (6-20); Calcium 8.6 mg/dL (8.5-10.5); Carbon Dioxide 26 mmol/L (22-29); Chloride 99 mmol/L (98-107); Glomerular Filtration Rate 134.7 mL/min (90-130); Glucose 293 mg/dL (65-115); Osmolality Calculated 290 mOsm/kg (285-295); Potassium 4.2 mmol/L (3.5-5.1); Sodium 135 mmol/L (136-145)
[2020-12-16 14:11] LABS: Troponin(5th) Baseline 6 ng/L (0-10)
--- NOTE | 2020-12-16 14:44 | MR_ITS ---
WS: [id number] MRA CAROTID WITHOUT AND WITH GADOLINIUM ENHANCEMENT TECHNIQUE: Axial 2-D TOF and gadolinium bolus images obtained with axial images and axial, sagittal, and coronal 2-D reformatted images. CLINICAL INFORMATION: recurrent stroke COMPARISON: None. FINDINGS: Codominant and patent vertebral arteries bilaterally. Proximal basilar artery is patent. RIGHT: Right common carotid artery is patent. No significant right ICA stenosis. ICA is patent to the skull base. LEFT: Left common carotid artery is patent. No significant left ICA stenosis. Left ICA is patent to t he skull base. Normal branching aortic arch anatomy. MR/MR angio neck w con* [id number] IMPRESSION: 1. Codominant and patent vertebral arteries bilaterally. Proximal basilar dawood ry is patent. 2. No significant ICA stenosis bilaterally. Both ICAs are patent to the skull base. 3. Normal branching aortic arch anatomy.
--- NOTE | 2020-12-16 14:51 | ECG_ITS ---
[facility] Test Date: 2020-12-16 Pat Name: Nava Carlson Department: Room: 252 Gender: Female State Appellate Clerk: : 1975 Requested By: Lakshmi Almaraz Order Number: [id number] Cheikh MD: Kun Knight M.D. Measurements Intervals Hood Rate: 70 P: 50 VA: 166 QRS: 82 QRSD: 90 T: 68 QT: 406 QTc: 439 Interpretive Statements SINUS RHYTHM No previous ECG available for comparison Electronically Signed On 12-16-2020 20:37:39 CDT by Kun Knight M.D. [id number]
[2020-12-16 15:15] LABS: Iron 45 ug/dL (37-145); NT Pro B Type Natriuretic Pept 11 pg/mL (0-125); Percent Saturation 12.8 % (20-50); Total Iron Binding Capacity 351 mcg/dl; Unsaturated Iron Binding 306 ug/dL (112-347)
[2020-12-16 15:16] LABS: Magnesium 1.9 mg/dL (1.7-2.3); Phosphorus 3.8 mg/dL (2.5-4.5); Thyroid Stimulating Hormone 2.99 uIU/mL (0.27-4.20)
--- NOTE | 2020-12-16 16:13 | PM.HP ---
Providers/Chief Complaint Admitting Physician: Bryant Killian MD Primary Care Provider: LIANA Miller Chief Complaint: NUMBNESS IN LEFT HAND History of Present Illness Nava Carlson is a 45 year old female with past medical history of type 1 diabetes mellitus, prolactinoma, recent stroke, possible PFO for which she follows up with data collection technician at [facility] and is due for surgical repair present to the ER today with left arm weakness and heaviness started yesterday at 8 PM and improved after few hours and repeated today morning. She states she had a whole work-up for stroke done at [facility] in July along with a Holter monitor and everything came back negative. She was told by her neurologist to come to the ER and that she would have similar symptoms so she came today. Denies any further symptoms or current symptoms. Review of Systems General: Reports: 10 or more systems reviewed and unremarkable except in HPI and below Const: Denies: fever(s), chills, body aches, change in appetite, change in weight, malaise, night sweats, diaphoresis, change in sleep pattern, daytime sleepiness or snoring Eyes: Denies: change in vision, blurry vision, photophobia, eye discomfort or eye discharge ENMT: Denies: throat pain, enlarged tonsils, hoarseness, mouth pain, oral sores, dry mouth, tinnitus, nasal congestion or post nasal drip Card: Denies: chest pain, palpitations, irregular heart rhythm, edema, swelling of feet/ankles, lightheadedness, syncope, pre-syncope, dyspnea on exertion, orthopnea, leg pain with exertion or acrocyanosis Resp: Denies: dyspnea, productive cough, non-productive cough, wheezing, stridor, pain on inspiration, change in phlegm color, hemoptysis or chest congestion GI: Denies: abdominal pain, nausea, vomiting, hematemesis, coffee ground emesis, dysphagia, heartburn, diarrhea, constipation, bloating, GI cramping, change in bowel habits, pain on defecation, hematochezia or melena : Denies: flank pain, dysuria, urinary frequency, urinary urgency, urinary hesitancy, nocturia or hematuria Musc: Denies: neck pain, back pain, extremity pain, joint pain, joint swelling, joint redness, joint stiffness or limited range of motion Neuro: Denies: headache(s), numbness in extremities, weakness in extremities, sensory changes, lack of coordination, difficulty walking, frequent falls, dizziness, vertigo, confusion, Slurred speech present, difficulty communicating thoughts or seizure-like activity Psych: Denies: anxiety, depression, mood swings, panic attacks, hopelessness or irritability Endo: Denies: polyuria, polydipsia, tired all the time, cold intolerance, excessive sweating, flushing or heat intolerance Kennedy/Lymph: Denies: easy bruising or easy bleeding All/Imm: Denies: tongue swelling, facial swelling or acute wheezing Medications/Allergies Home Medications Medication Instructions Recorded Confirmed Last Taken Type aspirin 81 mg tablet,delayed 81 mg PO QAM 08/11/20 12/16/20 12/16/20 08:00 History release atorvastatin 40 mg tablet 40 mg PO BEDTIME 08/11/20 12/16/20 12/15/20 History clonazepam 0.5 mg disintegrating 0.25 - 0.5 mg PO BID PRN #30 tab 10/27/20 12/16/20 12/16/20 08:00 Rx tablet insulin glulisine U-100 100 See Rx Instructions .ROUTE 10/27/20 12/16/20 12/16/20 08:00 History unit/mL subcutaneous pen .COMPLEX ml 12 UNITS venlafaxine 75 mg capsule,extended 75 mg PO QAM capsule 11/16/20 12/16/20 12/16/20 08:00 History release 24 hr insulin glargine [Lantus Solostar 40 unit SUBCUT QAM 12/16/20 12/16/20 12/16/20 History U-100 Insulin] Allergies Allergy/AdvReac Type Severity Reaction Status Date / Time acetaminophen [From Lortab] Allergy ALGY-Hives Verified 12/16/20 13:48 hydrocodone [From Lortab] Allergy ALGY-Hives Verified 12/16/20 13:48 latex Allergy Unknown Verified 12/16/20 13:48 moxifloxacin [From Avelox] Allergy Unknown Verified 12/16/20 13:48 Penicillins Allergy Unknown Verified 12/16/20 13:48 PFSH Acute PFSH: Medical History (Updated 12/16/20 @ 16:45 by Bryant Killian MD) Anxiety Depression Hyperprolactinemia Hypoglycemia due to insulin Ischemic stroke without residual deficits Dx 08/05/2020 @ [facility] PFO with atrial septal aneurysm Prolactinoma Quit smoking quit 08/2020 Uncontrolled type 1 diabetes mellitus with hyperglycemia Surgical History History of section Hx of tubal ligation Family History Father Cancer Mother Cancer, Onset Age: 65 brain cancer at age 65 Social History Smoking and tobacco status: former smoker Second hand smoke exposure: Yes Smoking risk assessment/counseling performed?: No Alcohol intake: never Desire information about alcohol rehabilitation?: No Counseling given: No Desire information about substance/drug rehabilitation?: No Counseling given: No Adopted: No Caregiver/support person: No Lives independently: Yes Household members: spouse Current gender identity: Female Female Reproductive History: Date of last menstrual period: 11/09/19 Para: 2 Spontaneous abortions: No Vitals/I&O/Wt Last Vital Signs Temp 98.1 F 12/16/20 09:48 Pulse 78 12/16/20 14:00 Resp 19 H 12/16/20 14:00 BP 153/58 12/16/20 14:00 Pulse Ox 98 12/16/20 14:00 Weight last 48 hrs Weight 68.039 kg Physical Exam Narrative: EXAM NARRATIVE: General: No acute distress, AO x3 HEENT: PERRLA, pupils bilaterally equal and reactive Chest: Normal vesicular breath sounds, no added sounds, equal good air entry bilaterally CVS: S1-S2 regular, no murmurs, no tachycardia, no gallops, no rubs Abdomen: Soft, nontender, no organomegaly, bowel sounds present Neuro: No focal deficits, no facial deformity, AO x3, power 5/5 in all limbs. NIHSS: 1. Level of Consciousness A) LOC Responsiveness 0 B) LOC Questions 0 C) LOC Commands 0 2. Horizontal Eye Movement 0 3. Visual field test 0 4. Facial Palsy 0 5. Motor Arm 0 6. Motor Leg 0 7. Limb Ataxia 0 9. Language 0 10. Speech 0 11. Extinction and Inattention 0 Data : 12/16/20 13:44 12/16/20 13:44 Other Labs: Laboratory Results WBC 6.6 10^3/uL (4.0-10.0) 12/16/20 13:44 RBC 4.52 10^6/uL (4.1-5.3) 12/16/20 13:44 Hgb 12.1 g/dL (11.5-15.3) 12/16/20 13:44 Hct 38.6 % (37.0-47.0) 12/16/20 13:44 MCV 85.4 fl (81-99) 12/16/20 13:44 MCH 26.8 pg (28.0-34.0) L 12/16/20 13:44 MCHC 31.3 g/dL (30.0-36.0) 12/16/20 13:44 RDW 13.2 % (12.1-15.1) 12/16/20 13:44 Plt Count 404 10^3/cmm (130-400) H 12/16/20 13:44 MPV 10.7 fL (7.4-10.4) H 12/16/20 13:44 Neut % (Auto) 54.1 % 12/16/20 13:44 Lymph % (Auto) 35.8 % 12/16/20 13:44 Haralson % (Auto) 3.9 % 12/16/20 13:44 Eos % (Auto) 4.5 % 12/16/20 13:44 Baso % (Auto) 1.4 % 12/16/20 13:44 Neut # (Auto) 3.59 10^3/uL (1.8-7.7) 12/16/20 13:44 Lymph # (Auto) 2.4 10^3/uL (0.8-4.8) 12/16/20 13:44 Haralson # (Auto) 0.3 10^3/uL (0.2-0.9) 12/16/20 13:44 Eos # (Auto) 0.3 10^3/uL (0.0-0.8) 12/16/20 13:44 Baso # (Auto) 0.1 10^3/uL (0.0-0.1) 12/16/20 13:44 Nucleated RBC % (auto) 0 % 12/16/20 13:44 Nucleated RBCs # 0.0 /100WBC 12/16/20 13:44 Sodium 135 mmol/L (136-145) L 12/16/20 13:44 Potassium 4.2 mmol/L (3.5-5.1) 12/16/20 13:44 Chloride 99 mmol/L (98-107) 12/16/20 13:44 Carbon Dioxide 26 mmol/L (22-29) 12/16/20 13:44 Anion Gap 14.2 (5-19) 12/16/20 13:44 BUN 10 mg/dL (6-20) 12/16/20 13:44 Creatinine 0.5 mg/dL (0.5-0.9) 12/16/20 13:44 GFR Calculation 134.7 mL/min (90-130) H 12/16/20 13:44 Glucose 293 mg/dL (65-115) H 12/16/20 13:44 Calculated Osmolality 290 mOsm/kg (285-295) 12/16/20 13:44 Calcium 8.6 mg/dL (8.5-10.5) 12/16/20 13:44 Phosphorus 3.8 mg/dL (2.5-4.5) 12/16/20 13:44 Magnesium 1.9 mg/dL (1.7-2.3) 12/16/20 13:44 Iron 45 ug/dL (37-145) 12/16/20 13:44 TIBC 351 mcg/dl 12/16/20 13:44 % Saturation 12.8 % (20-50) L 12/16/20 13:44 Unsat Iron Binding 306 ug/dL (112-347) 12/16/20 13:44 Troponin T Baseline 6 ng/L (0-10) 12/16/20 13:44 NT-Pro-B Natriuret Pep 11 pg/mL (0-125) 12/16/20 13:44 TSH 2.99 uIU/mL (0.27-4.20) 12/16/20 13:[address] 12/16/20 12:51 IMPRESSION: 1. No evidence of intracranial hemorrhage or mass effect. 2. Normal goode-white differentiation. 3. Small calcified left frontal parietal meningioma unchanged measuring 7 mm. 4. No acute intracranial findings. A&P Assessment and plan (1) Transient ischemic attack: Status: Acute (2) Ischemic stroke without residual deficits: Status: Acute (3) Uncontrolled type 1 diabetes mellitus with hyperglycemia: Status: Chronic (4) Meningioma: Status: Acute (5) Hyperprolactinemia: Status: Acute (6) Anxiety: Status: Acute (7) PFO with atrial septal aneurysm: Status: Acute Additional A&P Information TIA: NIH score is 0. History of recent stroke. Possible history of PFO. Check echocardiogram, MRI/MRA head and neck. Physical therapy/Occupational Therapy evaluation. Continue with aspirin and statin. Check HbA1c, lipid panel. Telemetry. Patient had a Holter monitor placed 4 months ago and was negative for any arrhythmia. Type 1 diabetes mellitus: Continue with home dose of Lantus 40 units every morning, insulin sliding scale at moderate dose. Cardiac carb consistent diet. Check HbA1c. History of prolactinoma/meningioma. Full code. Cardiac carb consistent diet. Lovenox for DVT prophylaxis. Famotidine for PUD prophylaxis. Attestations Medical Necessity Statement*: Admission under observation for less than 2 midnights for further evaluation of TIA Time Spent in Patient Care: Greater than 35 minutes (>than 50% of time spent in counselling and/or direct pt care on unit). Coding Level of Care Code Acute Renal Technician for Alessandra Luque Diagnoses Transient ischemic attack G45.9 Ischemic stroke without residual deficits I63.9 Uncontrolled type 1 diabetes mellitus with hyperglycemia E10.65 Meningioma D32.9 Hyperprolactinemia E22.1 Anxiety F41.9 PFO with atrial septal aneurysm Q21.1
[2020-12-16] MEDS: gadobenate dimeglumine 20 mL vial IV (16:22)
--- NOTE | 2020-12-16 16:25 | PC.NURSE ---
patient is back from mri
[2020-12-16 16:29] VITALS: BP 147/76; PULSE 93; RESP 18; O2SAT 99
--- NOTE | 2020-12-16 16:34 | PC.NURSE ---
attempted to call report, call back pending
[2020-12-16 16:41] VITALS: PULSE 89; O2SAT 95
[2020-12-16 17:18] LABS: Estmated Average Glucose 246; Hemoglobin A1C 10.2 % (4.0-6.0)
[2020-12-16 17:27] LABS: Troponin 5 2HR Delta 0 ABS# (0-10)
[2020-12-16 18:11] LABS: Glucose Point of Care 271 mg/dL (70-110)
[2020-12-16] MEDS: famotidine 20 mg Tablet PO (18:16)
--- NOTE | 2020-12-16 18:50 | PC.RESP ---
Unable to do assess and treat at this time, pt unavailable.
[2020-12-16 20:00] VITALS: BP 147/91; PULSE 83; RESP 17; TEMP 36.9; O2SAT 96
[2020-12-16] MEDS: atorvastatin 40 mg Tablet PO (20:08)
[2020-12-16 20:26] LABS: Glucose Point of Care 305 mg/dL (70-110)
[2020-12-16] MEDS: CLONazepam 0.5 mg Tablet PO (20:59)
[2020-12-17] VITALS (7 sets, daily range): BP systolic 108–184; BP diastolic 63–95; PULSE 79–126; RESP 16–25; TEMP 36.5–36.8; O2SAT 92–99; BMI 25.8
[2020-12-17] MEDS: heparin 5,000 unit/mL INJ 1 mL 5000 UNIT SUBCUT (00:34)
[2020-12-17] MEDS: aspirin 81 mg EC Tablet PO (05:04)
[2020-12-17] MEDS: venlafaxine ER (24HR) 75 mg Capsule PO (05:04)
[2020-12-17 05:31] LABS: Basophils # 0.1 10^3/uL (0.0-0.1); Eosinophils # 0.4 10^3/uL (0.0-0.8); Eosinophils % 4.1 %; Hematocrit 37.8 % (37.0-47.0); Hemoglobin 12.2 g/dL (11.5-15.3); Lymphocytes # 2.8 10^3/uL (0.8-4.8); Lymphocytes % 28.5 %; Mean Corpuscular HGB Conc 32.3 g/dL (30.0-36.0); Mean Corpuscular Hemoglobin 27.1 pg (28.0-34.0); Mean Corpuscular Volume 83.8 fl (81-99); Mean Platelet Volume 10.3 fL (7.4-10.4); Monocytes # 0.6 10^3/uL (0.2-0.9); Monocytes % 5.7 %; Neutrophils # 5.95 10^3/uL (1.8-7.7); Neutrophils % 60.4 %; Nucleated Red Blood Cells % 0 %; Platelet Count 371 10^3/cmm (130-400); Red Blood Count 4.51 10^6/uL (4.1-5.3); Red Cell Distribution Width 13.1 % (12.1-15.1); White Blood Count 9.9 10^3/uL (4.0-10.0)
--- NOTE | 2020-12-17 05:56 | PC.NURSE ---
Patient AAOx4, VSS, minimal c/o pain over night, no new events, no needs at this time. WIll report and handoff to oncoming nurse at shift change.
[2020-12-17 06:10] LABS: Glucose Point of Care 246 mg/dL (70-110)
[2020-12-17 06:11] LABS: Alanine Aminotransferase 15 U/L (0-33); Albumin Level 3.9 g/dL (3.5-5.2); Alkaline Phosphatase 69 IU/L (35-105); Anion Gap 14.1 (5-19); Aspartate Amino Transferase 12 U/L (0-32); Blood Urea Nitrogen 9 mg/dL (6-20); Calcium 8.4 mg/dL (8.5-10.5); Carbon Dioxide 25 mmol/L (22-29); Chloride 102 mmol/L (98-107); Chol HDL Ratio 2.77 mg/dL (0.0-4.40); Cholesterol 119 mg/dL (0-200); Globulin 2.9 g/dL (1.3-4.6); Glomerular Filtration Rate 134.7 mL/min (90-130); Glucose 245 mg/dL (65-115); HDL Cholesterol 43 mg/dL (60-100); LDL Cholesterol Calculated 63 mg/dL (50-129); Osmolality Calculated 291 mOsm/kg (285-295); Potassium 4.1 mmol/L (3.5-5.1); Sodium 137 mmol/L (136-145); Total Bilirubin 0.2 mg/dL (0.15-1.2); Total Protein 6.8 g/dL (6.6-8.7); Triglycerides 65 mg/dL (0-150); VLDL Cholestrol Calculation 13 mg/dL (0-30)
--- NOTE | 2020-12-17 06:42 | PC.NURSE ---
Patient refusing lantus at this time and requesting later in AM. This nurse educated patient that this is long acting insulin and that her BG was already elevated. Patient continues to refuse.
[2020-12-17] MEDS: famotidine 20 mg Tablet PO (08:17)
[2020-12-17] MEDS: insulin glargine 100 units/1 mL 40 UNIT SUBCUT (08:18)
--- NOTE | 2020-12-17 08:23 | PC.NURSE ---
PTS INSULIN GLARGINE NO SCANNING, ENTERED MANUALLY.
[2020-12-17] MEDS: CLONazepam 0.5 mg Tablet PO (10:10)
[2020-12-17 10:56] LABS: Glucose Point of Care 310 mg/dL (70-110)
[2020-12-17] MEDS: morphine 4 mg/mL SDV 1 mL 1 MG IVP (11:41)
[2020-12-17] MEDS: ALPRAZolam 0.5 mg Tablet PO (11:45)
--- NOTE | 2020-12-17 12:16 | PM.DCS ---
Discharge Providers Date of Admission: 12/16/20 13:26 Date of Discharge: December 17, 2020 Attending Provider at Admission: Bryant Killian MD Attending Provider at Discharge: Bryant Killian MD Primary Care Provider: LIANA Miller Diagnoses at Discharge Discharge Diagnosis (1) Transient ischemic attack: Status: Acute (2) Ischemic stroke without residual deficits: Status: Acute Permanent problem details: Dx 08/05/2020 @ [facility] (3) Uncontrolled type 1 diabetes mellitus with hyperglycemia: Status: Chronic (4) Meningioma: Status: Acute (5) Hyperprolactinemia: Status: Acute (6) Anxiety: Status: Acute (7) PFO with atrial septal aneurysm: Status: Acute Reason for Visit Reason for Visit: NUMBNESS IN LEFT HAND Hospital Course Hospital Course Nava Carlson is a 45 year old female with past medical history of type 1 diabetes mellitus, prolactinoma, recent stroke, possible PFO for which she follows up with apprentice lineman third step at [facility] and is due for surgical repair present to the ER today with left arm weakness and heaviness started yesterday at 8 PM and improved after few hours and repeated today morning. She states she had a whole work-up for stroke done at [facility] in July along with a Holter monitor and everything came back negative. She was told by her neurologist to come to the ER and that she would have similar symptoms so she came today. Denies any further symptoms or current symptoms. Patient admitted to hospital for further neurological checks and evaluation. Patient underwent MRI of brain and neck which were stable. During hospitalization she did not have any further episode or arrhythmias. During hospitalization she was found to have episodes of anxiety and panic attack for which Wellbutrin daily and Xanax as needed has been added to her medication list and she has been asked to follow-up with [facility] for further anxiety prevention. She was found to have an A1c of more than 10 so her home dose of Lantus was increased to 30 units twice daily. She was advised to follow-up with her casting operator in 2 weeks. Patient verbalized understanding. She is been discharged in hemodynamically stable condition. Physical Exam Narrative: EXAM NARRATIVE: General: No acute distress, AO x3 HEENT: PERRLA, pupils bilaterally equal and reactive Chest: Normal vesicular breath sounds, no added sounds, equal good air entry bilaterally CVS: S1-S2 regular, no murmurs, no tachycardia, no gallops, no rubs Abdomen: Soft, nontender, no organomegaly, bowel sounds present Neuro: No focal deficits, no facial deformity, AO x3, power 5/5 in all limbs. NIHSS: 1. Level of Consciousness A) LOC Responsiveness 0 B) LOC Questions 0 C) LOC Commands 0 2. Horizontal Eye Movement 0 3. Visual field test 0 4. Facial Palsy 0 5. Motor Arm 0 6. Motor Leg 0 7. Limb Ataxia 0 9. Language 0 10. Speech 0 11. Extinction and Inattention 0 Discharge Data Data Completed and Pending: Completed Studies During Hospitalization Category Date Time Status CT head wo con* [id number] Urgent Cat Scan 12/16/20 12:51 Completed MR angio head wo con [id number] Urgent MRI 12/16/20 13:25 Completed MR angio neck w c on* [id number] Urgent MRI 12/16/20 14:44 Completed MR head wo con* [id number] Urgent MRI 12/16/20 13:25 Completed Pending at discharge Category Date Time Status CV. echo complete * [id number] Routine Ultrasound 12/17/20 14:44 Taken Labs from last 24 hours 12/17/20 12/17/20 12/17/20 10:44 06:01 05:19 WBC RBC Hgb Hct MCV MCH MCHC RDW Plt Count MPV Neut % (Auto) Lymph % (Auto) [place] % (Auto) Eos % (Auto) Baso % (Auto) Neut # (Auto) Lymph # (Auto) [place] # (Auto) Eos # (Auto) Baso # (Auto) Nucleated RBC % (a uto) Nucleated RBCs # Sodium 137 Potassium 4.1 Chloride 102 Carbon Dioxide 25 Anion Gap 14.1 BUN 9 Creatinine 0.5 GFR Calculation 134.7 H Glucose 245 H POC Glucose 310 H 246 H Estimat Average Gl ucose Hemoglobin A1c Calculated Osmolal ity 291 Calcium 8.4 L Phosphorus Magnesium Iron TIBC % Saturation Unsat Iron Binding Total Bilirubin 0.2 AST 12 ALT 15 Alkaline Phosphata se 69 Troponin T Baselin e Troponin T 120 Min [place] Delta Troponin T NT-Pro-B Natriuret Pep Total Protein 6.8 Albumin 3.9 Globulin 2.9 Triglycerides 65 Cholesterol 119 LDL Cholesterol, C alc 63 Total VLDL Cholest keegan 13 HDL Cholesterol 43 L Cholesterol/HDL Ra randee 2.77 TSH 09/02/2612/16/20 12/16/20 05:19 19:47 18:01 WBC 9.9 RBC 4.51 Hgb 12.2 Hct 37.8 MCV 83.8 MCH 27.1 L MCHC 32.3 RDW 13.1 Plt Count 371 MPV 10.3 Neut % (Auto) 60.4 Lymph % (Auto) 28.5 Chester % (Auto) 5.7 Eos % (Auto) 4.1 Baso % (Auto) 1.0 Neut # (Auto) 5.95 Lymph # (Auto) 2.8 Chester # (Auto) 0.6 Eos # (Auto) 0.4 Baso # (Auto) 0.1 Nucleated RBC % (a uto) 0 Nucleated RBCs # 0.0 Sodium Potassium Chloride Carbon Dioxide Anion Gap BUN Creatinine GFR Calculation Glucose POC Glucose 305 H 271 H Estimat Average Gl ucose Hemoglobin A1c Calculated Osmolal ity Calcium Phosphorus Magnesium Iron TIBC % Saturation Unsat Iron Binding Total Bilirubin AST ALT Alkaline Phosphata se Troponin T Baselin e Troponin T 120 Min [place] Delta Troponin T NT-Pro-B Natriuret Pep Total Protein Albumin Globulin Triglycerides Cholesterol LDL Cholesterol, C alc Total VLDL Cholest keegan HDL Cholesterol Cholesterol/HDL Ra randee TSH 12/16/20 12/16/20 12/16/20 16:31 13:44 13:44 WBC RBC Hgb Hct MCV MCH MCHC RDW Plt Count MPV Neut % (Auto) Lymph % (Auto) Chester % (Auto) Eos % (Auto) Baso % (Auto) Neut # (Auto) Lymph # (Auto) Chester # (Auto) Eos # (Auto) Baso # (Auto) Nucleated RBC % (a uto) Nucleated RBCs # Sodium Potassium Chloride Carbon Dioxide Anion Gap BUN Creatinine GFR Calculation Glucose POC Glucose Estimat Average Gl ucose 246 Hemoglobin A1c 10.2 H Calculated Osmolal ity Calcium Phosphorus 3.8 Magnesium 1.9 Iron TIBC % Saturation Unsat Iron Binding Total Bilirubin AST ALT Alkaline Phosphata se Troponin T Baselin e Troponin T 120 Min [place] 6.00 Delta Troponin T 0 NT-Pro-B Natriuret Pep Total Protein Albumin Globulin Triglycerides Cholesterol LDL Cholesterol, C alc Total VLDL Cholest keegan HDL Cholesterol Cholesterol/HDL Ra randee TSH 2.99 12/16/20 12/16/20 12/16/20 13:44 13:44 13:44 WBC RBC Hgb Hct MCV MCH MCHC RDW Plt Count MPV Neut % (Auto) Lymph % (Auto) Chester % (Auto) Eos % (Auto) Baso % (Auto) Neut # (Auto) Lymph # (Auto) Chester # (Auto) Eos # (Auto) Baso # (Auto) Nucleated RBC % (a uto) Nucleated RBCs # Sodium 135 L Potassium 4.2 Chloride 99 Carbon Dioxide 26 Anion Gap 14.2 BUN 10 Creatinine 0.5 GFR Calculation 134.7 H Glucose 293 H POC Glucose Estimat Average Gl ucose Hemoglobin A1c Calculated Osmolal ity 290 Calcium 8.6 Phosphorus Magnesium Iron 45 TIBC 351 % Saturation 12.8 L Unsat Iron Binding 306 Total Bilirubin AST ALT Alkaline Phosphata se Troponin T Baselin e 6 Troponin T 120 Min [place] Delta Troponin T NT-Pro-B Natriuret Pep 11 Total Protein Albumin Globulin Triglycerides Cholesterol LDL Cholesterol, C alc Total VLDL Cholest keegan HDL Cholesterol Cholesterol/HDL Ra randee TSH 12/16/20 13:44 WBC 6.6 RBC 4.52 Hgb 12.1 Hct 38.6 MCV 85.4 MCH 26.8 L MCHC 31.3 RDW 13.2 Plt Count 404 H MPV 10.7 H Neut % (Auto) 54.1 Lymph % (Auto) 35.8 Chester % (Auto) 3.9 Eos % (Auto) 4.5 Baso % (Auto) 1.4 Neut # (Auto) 3.59 Lymph # (Auto) 2.4 Chester # (Auto) 0.3 Eos # (Auto) 0.3 Baso # (Auto) 0.1 Nucleated RBC % (a uto) 0 Nucleated RBCs # 0.0 Sodium Potassium Chloride Carbon Dioxide Anion Gap BUN Creatinine GFR Calculation Glucose POC Glucose Estimat Average Gl ucose Hemoglobin A1c Calculated Osmolal ity Calcium Phosphorus Magnesium Iron TIBC % Saturation Unsat Iron Binding Total Bilirubin AST ALT Alkaline Phosphata se Troponin T Baselin e Troponin T 120 Min [place] Delta Troponin T NT-Pro-B Natriuret Pep Total Protein Albumin Globulin Triglycerides Cholesterol LDL Cholesterol, C alc Total VLDL Cholest keegan HDL Cholesterol Cholesterol/HDL Ra randee TSH Addt'l Data from Hospital Stay: Laboratory Results WBC 9.9 10^3/uL (4.0- 10.0) 12/17/20 05:19 RBC 4.51 10^6/uL (4.1 -5.3) 12/17/20 05:19 Hgb 12.2 g/dL (11.5-1 5.3) 12/17/20 05:19 Hct 37.8 % (37.0-47.0 ) 12/17/20 05:19 MCV 83.8 fl (81-99) 12/17/20 05:19 MCH 27.1 pg (28.0-34. 0) L 12/17/20 05:19 MCHC 32.3 g/dL (30.0-3 6.0) 12/17/20 05:19 RDW 13.1 % (12.1-15.1 ) 12/17/20 05:19 Plt Count 371 10^3/cmm (130 -400) 12/17/20 05:19 MPV 10.3 fL (7.4-10.4 ) 12/17/20 05:19 Neut % (Auto) 60.4 % 12/17/20 05:19 Lymph % (Auto) 28.5 % 12/17/20 05:19 Chester % (Auto) 5.7 % 12/17/20 05:19 Eos % (Auto) 4.1 % 12/17/20 05:19 Baso % (Auto) 1.0 % 12/17/20 05:19 Neut # (Auto) 5.95 10^3/uL (1.8 -7.7) 12/17/20 05:19 Lymph # (Auto) 2.8 10^3/uL (0.8- 4.8) 12/17/20 05:19 Chester # (Auto) 0.6 10^3/uL (0.2- 0.9) 12/17/20 05:19 Eos # (Auto) 0.4 10^3/uL (0.0- 0.8) 12/17/20 05:19 Baso # (Auto) 0.1 10^3/uL (0.0- 0.1) 12/17/20 05:19 Nucleated RBC % (a uto) 0 % 12/17/20 05:19 Nucleated RBCs # 0.0 /100WBC 12/17/20 05:19 Sodium 137 mmol/L (136-1 45) 12/17/20 05:19 Potassium 4.1 mmol/L (3.5-5 .1) 12/17/20 05:19 Chloride 102 mmol/L (98-10 7) 12/17/20 05:19 Carbon Dioxide 25 mmol/L (22-29) 12/17/20 05:19 Anion Gap 14.1 (5-19) 12/17/20 05:19 BUN 9 mg/dL (6-20) 12/17/20 05:19 Creatinine 0.5 mg/dL (0.5-0. 9) 12/17/20 05:19 GFR Calculation 134.7 mL/min (90- 130) H 12/17/20 05:19 Glucose 245 mg/dL (65-115 ) H 12/17/20 05:19 POC Glucose 310 mg/dL (70-110 ) H 12/17/20 10:44 Estimat Average Gl ucose 246 12/16/20 13:44 Hemoglobin A1c 10.2 % (4.0-6.0) H 12/16/20 13:44 Calculated Osmolal ity 291 mOsm/kg (285- 295) 12/17/20 05:19 Calcium 8.4 mg/dL (8.5-10 .5) L 12/17/20 05:19 Phosphorus 3.8 mg/dL (2.5-4. 5) 12/16/20 13:44 Magnesium 1.9 mg/dL (1.7-2. 3) 12/16/20 13:44 Iron 45 ug/dL (37-145) 12/16/20 13:44 TIBC 351 mcg/dl 12/16/20 13:44 % Saturation 12.8 % (20-50) L 12/16/20 13:44 Unsat Iron Binding 306 ug/dL (112-34 7) 12/16/20 13:44 Total Bilirubin 0.2 mg/dL (0.15-1 .2) 12/17/20 05:19 AST 12 U/L (0-32) 12/17/20 05:19 ALT 15 U/L (0-33) 12/17/20 05:19 Alkaline Phosphata se 69 IU/L (35-105) 12/17/20 05:19 Troponin T Baselin e 6 ng/L (0-10) 12/16/20 13:44 Troponin T 120 Min [place] 6.00 ng/L (0-10) 12/16/20 16:31 Delta Troponin T 0 ABS# (0-10) 12/16/20 16:31 NT-Pro-B Natriuret Pep 11 pg/mL (0-125) 12/16/20 13:44 Total Protein 6.8 g/dL (6.6-8.7 ) 12/17/20 05:19 Albumin 3.9 g/dL (3.5-5.2 ) 12/17/20 05:19 Globulin 2.9 g/dL (1.3-4.6 ) 12/17/20 05:19 Triglycerides 65 mg/dL (0-150) 12/17/20 05:19 Cholesterol 119 mg/dL (0-200) 12/17/20 05:19 LDL Cholesterol, C alc 63 mg/dL (50-129) 12/17/20 05:19 Total VLDL Cholest keegan 13 mg/dL (0-30) 12/17/20 05:19 HDL Cholesterol 43 mg/dL (60-100) L 12/17/20 05:19 Cholesterol/HDL Ra randee 2.77 mg/dL (0.0-4 .40) 12/17/20 05:19 TSH 2.99 uIU/mL (0.27 -4.20) 12/16/20 13:[address] 12/16/20 12:51 IMPRESSION: 1. No evidence of intracranial hemorrhage or mass effect. 2. Normal goode-white differentiation. 3. Small calcified left frontal parietal meningioma unchanged measuring 7 mm. 4. No acute intracranial findings. Head MRI 12/16/20 13:25 IMPRESSION: 1. No evidence of restricted diffusion to suggest acute ischemia. 2. Minimal small vessel changes. Mild parenchymal volume loss. 3. Calcified extra-axial lesion overlying the left parietal lobe consistent with small meningioma. No underlying edema or significant mass effect. 4. No hemosiderin on susceptibly weighted images. Head MRA 12/16/20 13:25 IMPRESSION: Normal intracranial MRA. No evidence of flow-limiting stenosis. Neck MRA 12/16/20 14:44 IMPRESSION: 1. Codominant and patent vertebral arteries bilaterally. Proximal basilar artery is patent. 2. No significant ICA stenosis bilaterally. Both ICAs are patent to the skull base. 3. Normal branching aortic arch anatomy. Vitals: Last Vital Signs Temp 97.7 F 12/17/20 08:00 Pulse 126 H 12/17/20 11:43 Resp 25 H 12/17/20 11:43 BP 184/95 12/17/20 11:43 Pulse Ox 99 12/17/20 11:43 Discharge Plan Discharge Patient Disposition: Home Condition: Stable Prescriptions: Continued aspirin [Adult Low Dose Aspirin] 81 mg tablet,delayed release (DR/EC) 81 mg PO QAM RF: 0 atorvastatin 40 mg tablet 40 mg PO BEDTIME RF: 0 Apidra SoloStar U-100 Insulin 100 unit/mL insulin pen See Rx Instructions .ROUTE .COMPLEX RF: 0 clonazepam 0.5 mg tablet,disintegrating 0.25 - 0.5 mg PO BID PRN (Reason: anxiety) Qty: 30 RF: 2 Changed venlafaxine 75 mg capsule,extended release 24hr 150 mg PO QAM Qty: 0 RF: 0 Lantus Solostar U-100 Insulin 100 unit/mL (3 mL) insulin pen 30 unit SUBCUT BID Qty: 0 RF: 0 Discharge Orders: Discharge Order (Routine); Ordered 12/17/20 Ordered By: Bryant Killian Other Ambulatory Orders: Speech Language Pathology Eval and Treat Outpatient (Order) Timeframe: 1 Week Facility: [facility] - Location: Speech Therapy [facility] Ordered By: Bryant Killian Referrals: [facility] [Provider Group] - 1-3 days (Please call [facility] on Saturday12/19/2020. You can walk in during business hours to to the initial screening. This will start process to set you up with provider and possible therapist to help with overwhelming anxiety related to recent health concerns. This will improve overall health as well. ) Lorrie Ramirez FNP [Primary Care Provider] - Solo Martinez MD [Physician] - 2 weeks Discharge Diet: Cardiac Discharge Activity: Resume usual activity Patient Instructions: Opioid Safety Activity Restrictions/Additional Instructions: Please follow-up with your casting operator within next 2 weeks. Your dose of Lantus has been increased to 30 units twice daily. Please follow-up with [facility] as we discussed in detail. Your dose of venlafaxine has been increased to 150 mg daily. You have clonazepam which he can take 0.25 to 0.5 mg twice a day as needed for anxiety. Discharge Attestations Time Spent in Discharge Care*: greater than 30 min Specific Discharge Activities: educating patient, educating and/or supporting family/caregiver, discussing with pcp/other providers, discussing with disability case manager/social workers/dc planners, documenting/other paperwork and evaluating patient/reviewing data Status at Discharge: Cognitive status at discharge: cognitively intact, Behavioral status at discharge: cooperative, Functional status at discharge: independent ambulation Overall status at discharge: patient is back to baseline Quality Metrics Clinical Quality Measures During this hospital stay, did patient experience: None Coding Level of Care Code Acute Chg FW DC note Diagnoses Transient ischemic attack G45.9 Ischemic stroke without residual deficits I63.9 Uncontrolled type 1 diabetes mellitus with hyperglycemia E10.65 Meningioma D32.9 Hyperprolactinemia E22.1 Anxiety F41.9 PFO with atrial septal aneurysm Q21.1
--- NOTE | 2020-12-17 14:44 | USCV_ITS ---
Nava Carlson Age: 45 Gender: F : 1975 Exam Date: 12/17/2020 09:01 Ordering Phys: Bryant Killian MD Technologist: Jessica Cortes Exam Location: [facility] [place] Indication: STROKE, H/O PFO BP: 128 / 8 HR: 78 Rhythm: Sinus Technical Quality: Adequate MEASUREMENTS (Male / Female) Normal Values 2D ECHO LV Diastolic Diameter PLAX 3.7 cm 4.2 - 5.9 / 3.9 - 5.3 cm LV Systolic Diameter PLAX 2.6 cm IVS Diastolic Thickness 1.0 cm 0.6 - 1.0 / 0.6 - 0.9 cm IVS Systolic Thickness 1.9 cm LVPW Diastolic Thickness 1.2 cm 0.6 - 1.0 / 0.6 - 0.9 cm LVPW Systolic Thickness 1.5 cm LVOT Diameter 2.0 cm LV Ejection Fraction 2D Teich 56.8 % LV Ejection Fraction MOD 2C 65.9 % LV Ejection Fraction 2C AL 64.1 % LA Diameter 2.4 cm LA Width 2.3 cm LA Height 3.3 cm RA Width 3.2 cm RA Height 3.1 cm Aorta at Sinotubular Diameter 2.6 cm M-MODE Aortic Annulus Diameter 2.9 cm LA Ao Ratio MM 0.8 MV E Point Septal Separation 0.3 cm DOPPLER AV Peak Velocity 121.0 cm/s LVOT Peak Velocity 111.0 cm/s AV Area Cont Eq vti 3.1 cm squared AV Area Cont Eq pk 2.9 cm squared MV Peak Velocity 90.0 cm/s MV Area PHT 3.1 cm squared Mitral E to A Ratio 0.8 MV E' Velocity 42.0 cm/s Mitral E to MV E' Ratio 5.0 Mitral E to LV E' Lateral Ratio 4.7 Mitral E to LV E' Septal Ratio 5.3 TR Peak Velocity 178.0 cm/s TR Peak Gradient 12.7 mmHg TV Peak E Velocity 47.0 cm/s Right Atrial Pressure 3.0 mmHg Pulmonary Artery Systolic Pressu 15.7 mmHg PV Peak Velocity 110.0 cm/s RV Acceleration Time 0.1 s RV Ejection Time 0.3 s RV AcT/ET 0.3 FINDINGS Left Ventricle Normal left ventricular size, systolic function and wall thickness, with no regional wall motion abnormalities. Left ventricular ejection fraction is estimated at 65 %. Normal diastolic function. Right Ventricle Normal right ventricular size and systolic function. RVSP could not be calculated due to incomplete tricuspid regurgitation velocity profile. Right Atrium Normal right atrial size. Right atrial pressure estimated at 3 mm Hg. There is possibly tiny PFO (subcostal view). Left Atrium Normal left atrial size. Mitral Valve Structurally normal mitral valve. No mitral valve stenosis. No mitral valve regurgitation. Aortic Valve Structurally normal trileaflet aortic valve. No aortic valve stenosis. No aortic valve regurgitation. Tricuspid Valve Structurally normal tricuspid valve. No tricuspid valve stenosis. No tricuspid valve regurgitation. Pulmonic Valve Pulmonic valve not well visualized. No significant pulmonary valve regurgitation. Pericardium No pericardial effusion. Aorta Normal size aortic root and proximal ascending aorta. Normal sized inferior vena cava with normal respiratory variations. CONCLUSIONS 1. Normal left ventricular size, systolic function and wall thickness, with no regional wall motion abnormalities. Left ventricular ejection fraction is estimated at 65 %. Normal diastolic function. 2. Normal right ventricular size and systolic function. 3. No pericardial effusion. 4. Possible tiny PFO. BUD may be considered for better assessment. 5. No prior similar studies to compare. Vida Chen MD (Electronically Signed) Final Date: 17 December 2020 14:40 S
[2020-12-17 22:23] LABS: Glucose Point of Care 299 mg/dL (70-110)
--- NOTE | 2020-12-19 15:34 | PC.SOCIAL ---
discharge follow up call made, spoke with patient. Lantus was changed at discharge and patient is aware. patient follow up appointments made, dates and times given to patient. patient made her appointment with [facility] and will follow up. patient denies any questions or concerns.
== END 2020-12-17 13:15 | disposition home or self-care (01) ==
LOC: ER 13:38 → ER IP 15:46 → MEDSURG 16:12
PROVIDERS: Admitting Provider Student in an Organized Health Care Education/Training Program; Emergency Provider Emergency Medicine; PCP Registered Nurse; Visit Provider Student in an Organized Health Care Education/Training Program
DX: G45.9 Transient cerebral ischemic attack, unspecified (principal); I63.9 Cerebral infarction, unspecified; E10.65 Type 1 diabetes mellitus with hyperglycemia; D32.9 Benign neoplasm of meninges, unspecified; E22.1 Hyperprolactinemia; F41.9 Anxiety disorder, unspecified; Q21.1 Atrial septal defect; Z79.4 Long term (current) use of insulin; Z87.891 Personal history of nicotine dependence
CPT/HCPCS: 36415; 36416; 70450; 70544; 70548; 70551; 80048; 80053; 80061; 82962; 83036; 83540; 83550; 83735; 83880; 84100; 84443; 84484; 85025; 93005; 93306; 94664; 96372; 96374; 97161; 99285; A9577; G0378; J1644; J1815 ×2; J2270

== ENCOUNTER 2020-12-23 06:00 | Outpatient (RCR) | payer OTHER, SELFPAY | END 2021-01-05 23:59 | disposition home or self-care (01) | LOC: SST 06:00 | PROVIDERS: PCP Registered Nurse; Referring Provider Student in an Organized Health Care Education/Training Program; Visit Provider Student in an Organized Health Care Education/Training Program | DX: I69.922 Dysarthria following unspecified cerebrovascular disease (principal) | CPT/HCPCS: 92523 ==

== ENCOUNTER → 2021-01-19 10:11 | Outpatient (BNVA) | payer OTHER, SELFPAY | PROVIDERS: PCP Registered Nurse; Visit Provider Internal Medicine | DX: E10.65 Type 1 diabetes mellitus with hyperglycemia (principal); E22.1 Hyperprolactinemia; E16.0 Drug-induced hypoglycemia without coma; T38.3X5A Adverse effect of insulin and oral hypoglycemic [antidiabetic] drugs, initial encounter; Z87.891 Personal history of nicotine dependence; Z79.4 Long term (current) use of insulin | CPT/HCPCS: 99214 ==

== ENCOUNTER 2021-02-06 06:00 | Outpatient (CLI) | payer OTHER, SELFPAY | END 2021-02-06 06:01 | disposition home or self-care (01) | LOC: LAB 03-29 15:22 | PROVIDERS: PCP Registered Nurse; Referring Provider Student in an Organized Health Care Education/Training Program; Visit Provider Internal Medicine | DX: E10.65 Type 1 diabetes mellitus with hyperglycemia (principal) | CPT/HCPCS: 83036; 84146 ==

== ENCOUNTER → 2021-02-10 11:11 | Outpatient (BNVA) | payer OTHER, SELFPAY | PROVIDERS: PCP Registered Nurse; Visit Provider Internal Medicine | DX: E10.65 Type 1 diabetes mellitus with hyperglycemia (principal); E22.1 Hyperprolactinemia; E16.0 Drug-induced hypoglycemia without coma; T38.3X5A Adverse effect of insulin and oral hypoglycemic [antidiabetic] drugs, initial encounter; Z79.4 Long term (current) use of insulin; Z87.891 Personal history of nicotine dependence; G45.9 Transient cerebral ischemic attack, unspecified | CPT/HCPCS: 99214 ==

== ENCOUNTER → 2021-07-17 10:18 | Outpatient (BNVA) | payer OTHER, SELFPAY | PROVIDERS: PCP Registered Nurse; Visit Provider Internal Medicine | DX: E10.65 Type 1 diabetes mellitus with hyperglycemia (principal); E16.0 Drug-induced hypoglycemia without coma; T38.3X5A Adverse effect of insulin and oral hypoglycemic [antidiabetic] drugs, initial encounter | CPT/HCPCS: 83036; 84146 ==

== ENCOUNTER 2021-08-29 13:56 | Outpatient (CLI) | payer OTHER, SELFPAY ==
--- NOTE | 2021-08-29 14:09 | MM_ITS ---
WS: [id number] BILATERAL 3D TOMOSYNTHESIS DIGITAL SCREENING MAMMOGRAPHY WITH CAD CLINICAL INFORMATION: SCREENING HISTORY: Screening mammogram. No current complaints. COMPARISON: None. TECHNIQUE: Bilateral CC and MLO views. FINDINGS: Scattered fibroglandular densities bilaterally. No suspicious focal mass, asymmetry, calcifications, or architectural distortion. No evidence of malignancy. MM/[place] [id number] IMPRESSION: BI-RADS: 1-Negative FOLLOW UP: 1 Year Follow-up Recommend return to annual screening mammography.
== END 2021-08-29 13:57 | disposition home or self-care (01) ==
LOC: RAD 13:58
PROVIDERS: PCP Registered Nurse; Visit Provider Registered Nurse
DX: Z12.31 Encounter for screening mammogram for malignant neoplasm of breast (principal)
CPT/HCPCS: 77063; 77067

== ENCOUNTER → 2021-09-21 14:24 | Outpatient (BNVA) | payer OTHER, SELFPAY | PROVIDERS: PCP Registered Nurse; Visit Provider Registered Nurse | DX: E10.65 Type 1 diabetes mellitus with hyperglycemia (principal) | CPT/HCPCS: 82962 ==

== ENCOUNTER 2021-09-28 15:07 | Outpatient (CLI) | payer OTHER, SELFPAY ==
--- NOTE | 2021-09-28 15:15 | MR_ITS ---
WS: [id number] MRI BRAIN WITHOUT AND WITH CONTRAST, ATTENTION DIRECTED TO THE PITUITARY GLAND HISTORY: Hyperprolactinemia COMPARISON: MRI head 12/16/2020 TECHNIQUE: Diffusion-weighted imaging, axial T2 sequence, and postcontrast images in 3 planes are per formed. High-resolution coronal and sagittal imaging performed through the pituitary region with and without intravenous gadolinium. No diffusion-weighted abnormalities or hemorrhage. No significant volume loss or prior infarct. No si gnificant microvascular ischemic disease. No mass at the cerebellopontine angles. Visualized brainste m is negative. Seen best on the postcontrast imaging is a nonenhancing ovoid nodule measuring 4 x 3 mm in the binder stripper machine ior sella turcica. No significant mass effect. The infundibulum is in normal position. No optic chias m elevation. No enlargement or elevation of the pituitary gland from the sella turcica. Again noted is the moderately enhancing extra-axial mass over the LEFT frontoparietal region measurin g 15 x 10 mm with slight enlargement and consistent with a meningioma. No additional areas of abnormal enhancement visualized [place] and dural venous sinuses are negative. MR/MR pituitary wo/w con* [id number] IMPRESSION: 1. Nonenhancing pituitary mass measures 4 x 3 mm. No prior studies to evaluate for increase in size. This pituitary lesion was not definitely visualized on t he noncontrast head CT of 12/16/2020. 2. Very minimal increase in size of the LEFT frontal parietal meningioma measu ring 15 x 10 mm.
[2021-09-28] MEDS: gadobenate dimeglumine 20 mL vial IV (16:01)
== END 2021-09-28 15:08 | disposition home or self-care (01) ==
LOC: RAD 15:09
PROVIDERS: PCP Registered Nurse; Visit Provider Internal Medicine
DX: E23.6 Other disorders of pituitary gland (principal)
CPT/HCPCS: 70553

== ENCOUNTER → 2022-06-04 09:40 | Outpatient (BNVA) | payer SELFPAY | PROVIDERS: PCP Registered Nurse; Visit Provider Internal Medicine | DX: E10.69 Type 1 diabetes mellitus with other specified complication (principal); E78.2 Mixed hyperlipidemia; E10.65 Type 1 diabetes mellitus with hyperglycemia | CPT/HCPCS: 80053; 80061; 82043; 83036 ==

== ENCOUNTER → 2022-11-12 10:05 | Outpatient (BNVA) | payer SELFPAY | PROVIDERS: PCP Registered Nurse; Visit Provider Registered Nurse | DX: D35.2 Benign neoplasm of pituitary gland (principal); E10.65 Type 1 diabetes mellitus with hyperglycemia | CPT/HCPCS: 80053; 81000; 83036; 84146 ==

== ENCOUNTER 2022-12-18 12:16 | Outpatient (CLI) | payer OTHER, SELFPAY ==
--- NOTE | 2022-12-18 13:26 | P.DIET_ITS ---
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 PMH of DM type 1. Height: 5 ft 5 in Weight: 160 lb BMI: 26.7 kg/m2 - slightly in overweight range. UBW: Pt thinks she might weigh less. IBW: 125 lbs. Weight History: Pt has been about this weight. Concerns and Goals: Nava is concerned about reactions from foods d/t alpha gal. Sleep Hygiene: Goes to bed between 9-10 pm and doesn't usually wake up. Physical Activity: She knows she needs to exercise, but past month has been in bed a lot because her joints hurt. Other Feeding Issues: None Food Allergies and Sensitivities: Because of concern re: soap and shampoo, she has switched to All [place] products and not had problems. Meds, Supplements & Other: She has been regulating her insulin because of low blood sugars. Also she reacted to Effexor and had to switch. 24 Hour Recall: Breakfast Time: 9 am coffee w/oat milk, regular cheerios, maybe grapes Snack Time: Lunch Time: 11:30-12 Wonder bread + elisabeth vu rotisserie chx, Lays chips, grapes Snack Time: Dinner Time:7 pm dang Boneless chx thigh w/stove top cornbread flaver, can veggies Snack Time: Eating Out: Pt has had issues when eating out - tried hamburgers and had reaction. Soda vs Milk vs Water: Drinks oat milk and coffee. Additional Comments: Nava is nervous about what to eat - even though she is do ing the right things and avoiding meat and pork and meat products. We discussed the Celso Fig as an option to check on a food she might not be sure of the ingredients. Recommendations: Assessment: Nava has made helpful changes to manage her Alpha Gal allergy. Her daughter was diagnosed with nut allergies as a child, so eliminating foods is not foreign to her. Because she is type 1 DM, she has also learned to be careful with what she eats. Diagnosis: Altered nutrition related values r/t alpha gal allergy AEB reaction to mammalian products. Intervention: Nava seems to be experiencing a lot of anxiety r/t her alpha gal diagnosis. We talked a lot about what she could and couldn't eat, and that if she notices a reaction to something it has to be eliminated. More knowledge will be helpful to her so she can have the confidence she needs to continue to choose appropriate foods/meals. I emailed her links to blogs and articles that will be helpful, we talked about 2 different Apps that would allow her to list a food and it will tell her if she should avoid it or not, and we discussed appropriate eating for her DM type 1. We talked through all the handouts I gave her and I encouraged her to read through the articles and blogs I sent. Monitoring and Evaluation: She said she would be seeing Dr. Martinez soon for her DM. Because I emailed her, she has my contact information for any follow up questions or concerns. Coding Level of Care Code Nutrition/Individ/Init 60 min
== END 2022-12-18 12:17 | disposition home or self-care (01) ==
PROVIDERS: PCP Registered Nurse; Visit Provider Registered Nurse
DX: Z71.3 Dietary counseling and surveillance (principal); Z91.014 Allergy to mammalian meats; Z68.26 Body mass index [BMI] 26.0-26.9, adult
CPT/HCPCS: 97802

== ENCOUNTER → 2023-03-28 14:11 | Outpatient (BNVA) | payer OTHER, SELFPAY | PROVIDERS: PCP Registered Nurse; Visit Provider Registered Nurse | DX: E11.9 Type 2 diabetes mellitus without complications (principal); Z91.018 Allergy to other foods; Z91.014 Allergy to mammalian meats; E10.69 Type 1 diabetes mellitus with other specified complication; E78.2 Mixed hyperlipidemia; E10.65 Type 1 diabetes mellitus with hyperglycemia | CPT/HCPCS: 80053; 82306; 82607; 83036; 83735; 85025 ==

== ENCOUNTER → 2023-08-05 09:37 | Outpatient (BNVA) | payer OTHER, SELFPAY | PROVIDERS: PCP Registered Nurse; Visit Provider Registered Nurse | DX: E55.9 Vitamin D deficiency, unspecified (principal); E10.69 Type 1 diabetes mellitus with other specified complication; E78.2 Mixed hyperlipidemia; E53.8 Deficiency of other specified B group vitamins | CPT/HCPCS: 80053; 80061; 82306; 82607; 83036; 84146; 85025 ==

== ENCOUNTER → 2023-11-19 09:26 | Outpatient (BNVA) | payer OTHER, SELFPAY | PROVIDERS: PCP Registered Nurse; Visit Provider Registered Nurse | DX: E11.9 Type 2 diabetes mellitus without complications (principal); D35.2 Benign neoplasm of pituitary gland | CPT/HCPCS: 80053; 82607; 83036; 84146; 85025 ==

== ENCOUNTER → 2024-07-15 09:02 | Outpatient (BNVA) | payer OTHER, SELFPAY | PROVIDERS: PCP Registered Nurse; Visit Provider Registered Nurse | DX: E10.69 Type 1 diabetes mellitus with other specified complication (principal); E78.2 Mixed hyperlipidemia; D35.2 Benign neoplasm of pituitary gland; G45.9 Transient cerebral ischemic attack, unspecified | CPT/HCPCS: 80053; 80061; 82607; 83036; 84146; 85025 ==

== ENCOUNTER → 2024-08-11 11:42 | Outpatient (BNVA) | payer OTHER, SELFPAY | PROVIDERS: PCP Registered Nurse; Visit Provider Registered Nurse | DX: Z00.00 Encounter for general adult medical examination without abnormal findings (principal) | CPT/HCPCS: 87070; 87205; 87624 ==

== ENCOUNTER 2024-08-19 13:05 | Outpatient (CLI) | payer OTHER, SELFPAY ==
--- NOTE | 2024-08-19 13:20 | MM_ITS ---
WS: [id number] BILATERAL 3D TOMOSYNTHESIS DIGITAL SCREENING MAMMOGRAPHY WITH CAD CLINICAL INFORMATION: Z12.31 - Encounter for screening mammogram for malignant ... HISTORY: Screening mammogram. No current complaints. COMPARISON: 2021 TECHNIQUE: Bilateral CC and MLO views. FINDINGS: Scattered fibroglandular densities bilaterally. No suspicious focal mass, asymmetry, calcifications, or architectural distortion. No evidence of malignancy. MM/MM scr tomosynthesis [id number] IMPRESSION: DENSITY: There are scattered areas of fibroglandular density. BI-RADS: 1 - Negative. FOLLOW UP: 1 Year Follow-up Recommend return to annual screening mammography.
== END 2024-08-19 13:06 | disposition home or self-care (01) ==
PROVIDERS: PCP Registered Nurse; Visit Provider Registered Nurse
DX: Z12.31 Encounter for screening mammogram for malignant neoplasm of breast (principal); R92.323 Mammographic fibroglandular density, bilateral breasts
CPT/HCPCS: 77063; 77067

== ENCOUNTER → 2024-12-18 09:56 | Outpatient (BNVA) | payer OTHER, SELFPAY | PROVIDERS: PCP Registered Nurse; Visit Provider Registered Nurse | DX: E10.65 Type 1 diabetes mellitus with hyperglycemia (principal); D35.2 Benign neoplasm of pituitary gland | CPT/HCPCS: 80053; 80061; 82043; 83036; 84146 ==